=== PATIENT | male | born 1940 | race Caucasian/White ===

== ENCOUNTER 2017-11-27 18:42 | Emergency (ER) | payer OTHER, MEDICARE ==
[~2017-11-27] VITALS: Ht 171.4 cm; Wt 104.3 kg
--- NOTE | 2017-11-27 20:19 | CT SCAN REPORT ---
EXAMINATION: CT ABDOMEN AND PELVIS WITHOUT CONTRAST CLINICAL INFORMATION: Left-sided groin pain. COMPARISON: None available. TECHNIQUE: Multidetector volumetric imaging was performed from the superior aspect of the liver through the pubic symphysis. Sagittal and coronal reformatted images were obtained on the technologist's workstation. FINDINGS: The lung bases are clear. Limited evaluation of the unenhanced spleen, adrenal glands, gallbladder, and pancreas reveals no definite abnormality. Multiple liver cysts. The kidneys are symmetric in size without evidence of hydronephrosis or nephrolithiasis. Small right renal cyst. Moderate volume intracolonic stool. The large and small bowel are normal in caliber without evidence of mechanical obstruction. No focal inflammatory changes adjacent to the large or the small bowel. There is no free air and there is no intra-abdominal free fluid. No mesenteric or retroperitoneal adenopathy. Prostate gland is normal in size. The bladder is normal. There are no inguinal hernias. 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 There is an IVC filter in place. There are no acute osseous abnormalities. Severe degenerative disc disease throughout the entire lumbar spine. There is lumbarization of S1. Disc osteophyte and hypertrophic facet arthropathy result in varying degrees of moderate to severe foraminal stenosis throughout the lumbar spine. In the setting of lumbar radiculopathy these findings can be further assessed with a lumbar spine MRI. Hypertrophic degenerative changes involving the SI joints bilaterally, greater on the right side. Small fat-containing umbilical hernia. IMPRESSION: - No acute findings. No radiopaque calculi. No inguinal hernia. 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 - Severe degenerative disc disease throughout the entire lumbar spine. Disc osteophyte and hypertrophic facet arthropathy result in varying degrees of moderate to severe foraminal stenosis throughout the lumbar spine. In the setting of lumbar radiculopathy these findings can be further assessed with a lumbar spine MRI.
--- NOTE | 2017-11-27 20:39 | ED GENERAL ADULT ---
History of Present Illness General Chief Complaint: General Adult Stated Complaint: PT HAS PAIN ON THE LT SIDE BY GROIN Source: patient Exam Limitations: no limitations Allergies Coded Allergies: No Known Allergies (11/27/17) Triage Note: PT STATES THAT [place] AND THAT HE HAS A DVT IN HIS LLE, STATES THAT HE ALSO HAS 3 WEEKS OF L SIDE GROIN PAIN, PT UNABLE TO GIVE A GOOD MEDICAL HISTORY AND IS ALL OVER WITH HIS STORY. PT NEPHEW RAN HOME TO GET MED LIST. Triage Nurses Notes Reviewed? yes Onset: Gradual Duration: week(s): (3) Timing: no prior history Injury Environment: home Severity: moderate No Modifying Factors: none HPI: Patient is a 76-year-old male presenting to the emergency department with chief complaint of left groin pain has been going on intermittently for the past 2 weeks. Denies any known injury. Family noticed that he's been limping over the past 2 weeks. He was diagnosed with a blood clot in the left leg 3 days ago and started on ElEquist. Patient denies any chest pain palpitations or shortness of breath. No abdominal pain. Denies any scrotal pain. No urinary frequency urgency or dysuria. Denies any history of hernia. Patient does report that he is active and does do some lifting but nothing acute triggered the pain in the left groin area. (Jayna Garcia) Vital Signs & Intake/Output Vital Signs & Intake/Output Vital Signs Date Time Temp Pulse Resp B/P B/P Pulse O2 O2 Flow FiO2 Mean Ox Delivery Rate 11/27 2112 97.6 95 18 136/85 95 Room Air 11/27 1854 97.2 93 19 141/87 95 Room Air (Kevin Bonilla DO) Past History Travel History Traveled to [place] past 21 day No Medical History Any Pertinent Medical History? see below for history Cardiovascular: AFIB, hypertension Gastrointestinal: NONE Blood Disorders: DVT, PE Cancer(s): NONE Surgical History Surgical History: ivc filter Psychosocial History What is your primary language Bahraini Tobacco Use: Never used ETOH Use: denies use Illicit Drug Use: denies illicit drug use Family History Hx Contributory? No (Jayna Garcia) Review of Systems Review of Systems Constitutional: Reports: no symptoms. Comments Review of systems: See HPI, All other systems negative. Constitutional, no chills fever or weight loss HEENT: No visual changes no sore throat no congestion Cardiovascular: No chest pain ,palpitation , orthopnea or ankle swelling Skin, no jaundice no rashes Respiratory: No dyspnea cough sputum or hemoptysis GI: No nausea no vomiting : No dysuria No hematuria Muscle skeletal: no back pain, no neck pain, Neurologic: No numbness no confusion Psych: No stress anxiety or depression,. Heme/endocrine: No bruising no bleeding no polyuria or polydipsia Immunology: No splenectomy or history of AIDS (Jayna Garcia) Physical Exam Physical Exam General Appearance: well developed/nourished, no apparent distress, alert, comfortable Comments: Well-developed well-nourished person in no acute distress HEENT: Atraumatic, normocephalic Neck: Normal inspection Back: Nontender Cardiovascular: Regular rate and rhythms Respiratory: No respiratory distress.breath sounds clear to auscultation bilaterally Abdomen: Soft, mild distention throughoUT, reducible umbilical hernia present, nontender nondistended, no appreciable organomegaly. Normal bowel sounds. Extremity: Mild nonpitting edema noted in the left lower extremity, left calf tenderness to palpation on exam, normal and equal pulses. Tender to palpation over the left medial thigh, pain in this area with left hip abduction. Walks with slight limp favoring left leg. Neuro: Alert oriented x3, motor sensory normal Skin: No appreciable rash on exposed skin, skin is warm and dry. Psych: Mood and affect is normal, memory and judgment is normal. Core Measures ACS in differential dx? No CVA/TIA Diagnosis: No Sepsis Present: No Sepsis Focused Exam Completed? No (Jayna Garcia) Progress Differential Diagnoses I considered the following diagnoses in my evaluation of the patient: DVT, muscle strain, contusion, hip fracture, kidney stone, reactive lymph node, hernia Diagnostic Imaging: Viewed by Me: CT Scan, Ultrasound. Discussed w/RAD: CT Scan, Ultrasound. Radiology Impression: PATIENT: JAYSON GILLIAM PRESENT AGE: 76 PATIENT ACCOUNT NO: [id number] : 39 LOCATION: [facility] ORDERING PHYSICIAN: Tree AUGUST SERVICE DATE: 11/27/17 EXAM TYPE: US - US- UNILATERAL VENOUS DOPPLER EXAMINATION: US TRIPLEX LOWER EXTREMITY, LEFT CLINICAL INFORMATION: Edema and swelling COMPARISON: None TECHNIQUE: Color-flow triplex imaging with spectral analysis and compression Doppler were performed on the lower extremity. FINDINGS: Newly completely occlusive thrombus within the popliteal vein. Otherwise patent deep venous system. Calf veins not well visualized. There is no Quick's cyst. IMPRESSION: Popliteal vein DVT. This critical result was discussed with Dr. Lezama at 8:38 PM on 11/20/2016 and it was ascertained that the content and urgency of the report was understood at the time of direct communication. DICTATED BY: Maurilio Pelaez MD DATE/TIME DICTATED:2032 PAPER REWINDER OPERATOR:VICENTE DATE/TIME TRANSCRIBED:11/27/172032 CONFIDENTIAL, DO NOT COPY WITHOUT APPROPRIATE AUTHORIZATION. <Electronically signed in Other Vendor System> SIGNED BY: Maurilio Pelaez MD 11/27/172041, PATIENT: JAYSON GILLIAM PRESENT AGE: 76 PATIENT ACCOUNT NO: [id number] : 39 LOCATION: ER ORDERING PHYSICIAN: Tree AUGUST SERVICE DATE: 11/27/17 EXAM TYPE: CAT - CT ABD & PELVIS W/O IV CONTRAS EXAMINATION: CT ABDOMEN AND PELVIS WITHOUT CONTRAST CLINICAL INFORMATION: Left-sided groin pain. COMPARISON: None available. TECHNIQUE: Multidetector volumetric imaging was performed from the superior aspect of the liver through the pubic symphysis. Sagittal and coronal reformatted images were obtained on the technologist's workstation. FINDINGS: The lung bases are clear. Limited evaluation of the unenhanced spleen, adrenal glands, gallbladder, and pancreas reveals no definite abnormality. Multiple liver cysts. The kidneys are symmetric in size without evidence of hydronephrosis or nephrolithiasis. Small right renal cyst. Moderate volume intracolonic stool. The large and small bowel are normal in caliber without evidence of mechanical obstruction. No focal inflammatory changes adjacent to the large or the small bowel. There is no free air and there is no intra-abdominal free fluid. No mesenteric or retroperitoneal adenopathy. Prostate gland is normal in size. The bladder is normal. There are no inguinal hernias. 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 There is an IVC filter in place. There are no acute osseous abnormalities. Severe degenerative disc disease throughout the entire lumbar spine. There is lumbarization of S1. Disc osteophyte and hypertrophic facet arthropathy result in varying degrees of moderate to severe foraminal stenosis throughout the lumbar spine. In the setting of lumbar radiculopathy these findings can be further assessed with a lumbar spine MRI. Hypertrophic degenerative changes involving the SI joints bilaterally, greater on the right side. Small fat- containing umbilical hernia. IMPRESSION: - No acute findings. No radiopaque calculi. No inguinal hernia. 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 - Severe degenerative disc disease throughout the entire lumbar spine. Disc osteophyte and hypertrophic facet arthropathy result in varying degrees of moderate to severe foraminal stenosis throughout the lumbar spine. In the setting of lumbar radiculopathy these findings can be further assessed with a lumbar spine MRI. DICTATED BY: Kevin Swain MD DATE/TIME DICTATED:11/27/172003 PAPER REWINDER OPERATOR:VICENTE DATE/TIME TRANSCRIBED:11/27/172003 CONFIDENTIAL, DO NOT COPY WITHOUT APPROPRIATE AUTHORIZATION. <Electronically signed in Other Vendor System> SIGNED BY: Kevin Swain MD 11/27/172018 Initial ED EKG: none (Jayna Garcia) Plan of Care: Orders Procedure Date/time Status URINALYSIS 11/28 2043 Complete COMPREHENSIVE METABOLIC PANEL 11/28 2043 Complete CBC WITHOUT DIFFERENTIAL 11/28 2043 Complete Laboratory Tests 11/27/172111: Urine Color YEL, Urine Clarity CLEAR, Urine pH 6.0, Ur Specific [place] 1.020, Urine Protein NEG, Urine Ketones NEG, Urine Nitrite NEG, Urine Bilirubin NEG, Urine Urobilinogen 0.2, Ur Leukocyte Esterase SMALL H, Ur Microscopic SEDIMENT EXAMINED, Urine RBC 1-3, Urine WBC 1-3 H, Ur Epithelial Cells RARE, Urine Bacteria RARE H, Hyaline Casts RARE H, Urine Mucus RARE, Urine Hemoglobin SMALL H, Urine Glucose NEG 11/27/172108: Anion Gap 11, Estimated GFR 59 L, BUN/Creatinine Ratio 21.7, Glucose 116 H, Calcium 9.0, Total Bilirubin 0.7, AST 19, ALT 31, Alkaline Phosphatase 72, Total Protein 7.2, Albumin 3.9, Globulin 3.3, Albumin/Globulin Ratio 1.2, CBC w Diff NO MAN DIFF REQ, RBC 4.97, MCV 89.8, MCH 29.5, MCHC 32.9 L, RDW 15.4 H, MPV 6.7 L, Gran % 67.6, Lymphocytes % 21.0, Monocytes % 9.0, Eosinophils % 2.2, Basophils % 0.2, Absolute Granulocytes 5.2, Absolute Lymphocytes 1.6, Absolute Monocytes 0.7 H, Absolute Eosinophils 0.2, Absolute Basophils 0 Family informed of imaging results.. No shortness of breath or chest pain. Spoke with vascular regarding incidental finding of aneurysm on CT scan. Likely unrelated to patient's groin pain. There is no reproducible masses or lymph nodes on exam. Likely muscular in nature. Patient will follow up with the vascular surgeon in the office tomorrow. Otherwise instructed to use Tylenol [id number] and warm compresses to help with symptoms. D/W DR TAPIA AND HE AGREES WITH PLAN. (Jayna Garcia) (Kevin Bonilla DO) Departure Departure Time of Disposition: 2214 Disposition: HOME OR SELF CARE Condition: Stable Clinical Impression Primary Impression: Groin pain Qualifiers: Laterality: left Qualified Code: R10.32 - Left lower quadrant pain Referrals: Benigno Mosquera MD Patient Has No Primary Care Dr (PCP/Family) Additional Instructions: Follow-up with Vascular surgery, call tomorrow to schedule appointment. Dr. Mosquera said he can see you in his [place] office tomorrow, call the office at [phone] to make an appointment. Apply warm compresses to affected area. Take Tylenol [id number] for any aches or pains. Departure Forms: Customer Survey General Discharge Information (Jayna Garcia) PA/METAL BONDING ASSEMBLER Co-Sign Statement Statement: ED Attending supervision documentation- x I saw and evaluated the patient. I have also reviewed all the pertinent lab results and diagnostic results. I agree with the findings and the plan of care as documented in the PA's/METAL BONDING ASSEMBLER's documentation. [] I have reviewed the ED Record and agree with the PA's/METAL BONDING ASSEMBLER's documentation. [] Additions or exceptions (if any) to the PAs/METAL BONDING ASSEMBLER's note and plan are summarized below: [] I've seen and personally examined the patient. The left groin is essentially unremarkable. CT results noted. The patient will follow up with vascular surgery. (Chad PFEIFFER,Kevin Hughes) Critical Care Note Critical Care Note Critical Care Time: non-applicable (Stewart AUGUST,Jayna)
--- NOTE | 2017-11-27 20:42 | ULTRASOUND REPORT ---
EXAMINATION: US TRIPLEX LOWER EXTREMITY, LEFT CLINICAL INFORMATION: Edema and swelling COMPARISON: None TECHNIQUE: Color-flow triplex imaging with spectral analysis and compression Doppler were performed on the lower extremity. FINDINGS: Newly completely occlusive thrombus within the popliteal vein. Otherwise patent deep venous system. Calf veins not well visualized. There is no Quick's cyst. IMPRESSION: Popliteal vein DVT. This critical result was discussed with Dr. Lezama at 8:38 PM on 11/20/2016 and it was ascertained that the content and urgency of the report was understood at the time of direct communication.
[2017-11-27 21:12] VITALS: BP 136/85
[2017-11-27 21:17] LABS: ABSOLUTE BASOPHIL COUNT 0 /CUMM (0.0-0.2); ABSOLUTE EOSINOPHIL COUNT 0.2 /CUMM (0.0-0.7); ABSOLUTE GRANULOCYTE CT 5.2 /CUMM (1.4-6.5); ABSOLUTE LYMPH COUNT 1.6 /CUMM (1.2-3.4); ABSOLUTE MONOCYTE COUNT 0.7 /CUMM (0.10-0.60); BASOPHIL % 0.2 % (0.0-2.0); EOSINOPHIL % 2.2 % (0-5); GRANULOCYTE % 67.6 % (42.2-75.2); HEMATOCRIT 44.7 % (42-52); MEAN CORPUSCULAR HGB 29.5 PG (27.0-31.0); MEAN CORPUSCULAR HGB CONC 32.9 G/DL (33.0-37.0); MEAN CORPUSCULAR VOLUME 89.8 FL (80.0-94.0); MEAN PLATELET VOLUME 6.7 FL (7.4-10.4); PLATELET COUNT 232 /CUMM (130-400); RBC DISTRIBUTION WIDTH 15.4 % (11.5-14.5); RED BLOOD CELL CT 4.97 /CUMM (4.70-6.10); WHITE BLOOD CELL COUNT 7.8 /CUMM (4.8-10.8)
== END 2017-11-27 22:51 ==
LOC: ERH 18:42
PROVIDERS: Physician Assistant
DX: R10.32 Left lower quadrant pain (principal)
CPT/HCPCS: 74176; 81001

== ENCOUNTER 2018-01-11 18:02 | Inpatient (IN) | payer OTHER, MEDICARE ==
[~2018-01-11] VITALS: Ht 175.3 cm; Wt 101.7 kg
--- NOTE | 2018-01-11 18:37 | ED CARDIAC/CP/PALPITATIONS ---
History of Present Illness General Chief Complaint: General Adult Stated Complaint: PT STATES "MY LEGS ARE WOBBILING" Source: patient, family Exam Limitations: dementia Vital Signs & Intake/Output Vital Signs & Intake/Output Vital Signs Date Time Temp Pulse Resp B/P B/P Pulse O2 O2 Flow FiO2 Mean Ox Delivery Rate 01/13 0915 91 110/68 01/13 0800 93 Nasal 2.0L Cannula 01/13 0744 98.0 91 18 110/68 96 01/13 0000 Nasal 2.0L Cannula 01/12 2244 97.8 114 20 110/78 93 Nasal 2.0L Cannula 01/12 2142 114 110/78 01/12 1600 97 Nasal 2.0L Cannula ED Intake and Output 01/13 0000 01/12 1200 Intake Total 820 Output Total 625 800 Balance 195 -800 Intake, IV 250 Intake, Oral 570 Output, Urine 625 800 Patient 105.233 kg Weight Weight Bed scale Measurement Method Allergies Coded Allergies: No Known Allergies (11/27/17) Reconcile Medications Apixaban (Eliquis) 5 MG TABLET 1 TAB PO BID a.fib (Reported) Benztropine Mesylate 1 MG TABLET 1 TAB PO BID TARDIVE DYSKINESIA (Reported) Levothyroxine Sodium (Synthroid) 200 MCG TABLET 1 TAB PO DAILY HYPOTHRYOIDISM (Reported) Nifedipine (Nifedipine ER) 30 MG TABLET.ER 1 TAB PO DAILY HTN (Reported) Quetiapine Fumarate 300 MG 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 REPORTED PALPITATIONS AN HOUR AGO BUT DENIES CP. APICAL SOUNDS IRREGULAR AND RADIAL PULSES IRREGULAR AND THREADY. DENIES HEADACHE OR DIZZINESS. NO CAROTID BRUIT. DENIES COUGH, +SOB AND HINKLE. +CRACKLES BILATERALLY. ABDOMEN SOFT DISTENDED WITH DIMINISHED BOWEL SOUNDS. EKG SHOWS AFIB W RVR AND SIGNIFICANT ECTOPY WITH PAC'S. DENIES PAIN. DAILY ELIQUIS, NO ASA. HX DVT AND PE'S. Triage Nurses Notes Reviewed? yes HPI: 77M PMH atrial fibrillation on Eliquis, HTN presenting with lightheadedness and a sensation of wobbling legs that presented suddenly. Never had similar symptoms before. Had an episode of palpitations about an hour prior that has since resolved. Denies vertigo, headache, sore throat, stiff neck, chest pain, SOB, abdominal pain, diarrhea, dysuria. Compliant with all meds. No sck contacts or travel. Gets his care at the NH. History limited by mild dementia. Past History Travel History Traveled to [place] past 21 day No Medical History Any Pertinent Medical History? see below for history Neurological: NONE EENT: NONE Cardiovascular: AFIB, hypertension Respiratory: NONE Gastrointestinal: NONE Hepatic: NONE Renal: NONE Musculoskeletal: NONE Psychiatric: NONE Endocrine: NONE Blood Disorders: DVT, PE Cancer(s): NONE Surgical History Surgical History: ivc filter Psychosocial History What is your primary language Welsh Tobacco Use: Refused to answer Family History Hx Contributory? No Review of Systems Review of Systems Constitutional: Reports: no symptoms. EENTM: Reports: no symptoms. Respiratory: Reports: no symptoms. Cardiovascular: Reports: no symptoms. GI: Reports: no symptoms. Genitourinary: Reports: no symptoms. Musculoskeletal: Reports: no symptoms. Skin: Reports: no symptoms. Neurological/Psychological: Reports: no symptoms. Hematologic/Endocrine: Reports: no symptoms. Immunologic/Allergic: Reports: no symptoms. All Other Systems: Reviewed and Negative Physical Exam Physical Exam General Appearance: well developed/nourished, no apparent distress Head: atraumatic, normal appearance Eyes: Bilateral: normal appearance. Ears, Nose, Throat: normal ENT inspection, hearing grossly normal Neck: normal inspection, supple, full range of motion Respiratory: bibasilar crackles Cardiovascular: irregularly irregular, 2/6 systolic murmur at LUSB Peripheral Pulses: 2+ radial (R), 2+ radial (L) Gastrointestinal: soft, non-tender Back: normal inspection, normal range of motion Extremities: normal inspection, normal capillary refill, normal range of motion, 3+ pitting edema to knees b/l Neurologic/Psych: awake, alert, oriented x 3, normal mood/affect Skin: follilculitis of chest Core Measures ACS in differential dx? Yes CVA/TIA Diagnosis No Sepsis Present: No Sepsis Focused Exam Completed? No Progress Differential Diagnosis: AMI, aortic dissection, atrial fibrillation, cholecystitis, CHF/pulm edema, costochondritis, hyperkalemia, hypovolemia, hyperthyroid, hyperventilation, intracranial hemorrhage, musculoskeletal pain, myocarditis, pancreatitis, pericarditis, pneumonia, pneumothorax, PSVT, pulmonary embolism, PUD/GERD, PVCs/PACs, respiratory failure, rib fracture, sepsis, unstable angina, V-fib/V-Tach, WPW syndrome Plan of Care: Orders Procedure Date/time Status BASIC ELECTROLYTES PLUS BUN&CR 01/14 06 Active MAGNESIUM 01/13 600 Complete CBC WITHOUT DIFFERENTIAL 01/13 600 Complete BASIC ELECTROLYTES PLUS BUN&CR 01/13 600 Complete Current Medications Sig/Connie Start time Last Medication Dose Stop Time Status Admin Carvedilol 6.25 MG BID 01/13 2100 AC (Coreg) Ondansetron HCl 4 MG Q6P PRN 01/13 1030 AC (Zofran) Nifedipine 30 MG DAILY 01/13 0900 CAN (Procardia XL) Atorvastatin Calcium 40 MG QPM 01/12 2100 AC 01/12 (Lipitor) 214 Furosemide 20 MG 7:30 AM, & 4:30 PM 01/12 1745 AC 01/13 (Lasix) 0914 Polyethylene Glycol 17 GM DAILY 01/12 1430 AC 01/13 (Miralax) 0914 Senna/Docusate Sodium 1 TAB BID PRN 01/12 1430 AC 01/12 (Senokot S) 2142 Benztropine Mesylate 1 MG BID 01/12 0900 AC 01/13 (Cogentin 1 MG 09 Tablet) Quetiapine Fumarate 300 MG DAILY 01/12 0900 AC 01/13 (Seroquel) 0915 Levothyroxine Sodium 0.2 MG DAILY AC 01/12 0700 AC 01/12 (Synthroid) 0602 Acetaminophen 650 MG Q4P PRN 01/12 0300 AC 01/12 (Tylenol) 2141 Apixaban 5 MG BID 01/11 2330 AC 01/13 (Eliquis) 0915 Quetiapine Fumarate 300 MG QPM 01/11 2330 AC 01/12 (Seroquel) 214 Laboratory Tests 01/13/18 0652: Anion Gap 7, Estimated GFR > 60, BUN/Creatinine Ratio 22.0, Magnesium 2.2, CBC w Diff NO MAN DIFF REQ, RBC 4.46 L, MCV 89.0, MCH 29.4, MCHC 33.0, RDW 15.7 H, MPV 7.4, Gran % 73.3, Lymphocytes % 17.3 L, Monocytes % 7.7, Eosinophils % 1.4, Basophils % 0.3, Absolute Granulocytes 5.7, Absolute Lymphocytes 1.4, Absolute Monocytes 0.6, Absolute Eosinophils 0.1, Absolute Basophils 0 01/12/18 1657: Magnesium Cancelled Initial ED EKG: AFIB, no ST T wave changes Departure Departure Disposition: STILL A PATIENT Condition: Stable Clinical Impression Primary Impression: Rapid atrial fibrillation Secondary Impressions: Acute CHF Qualifiers: Heart failure type: unspecified Qualified Code: I50.9 - Heart failure, unspecified Referrals: Patient Has No Primary Care Dr (PCP/Family) Departure Forms: Customer Survey General Discharge Information Admission Note Spoke With: Pino Schmidt MD Documentation of Exam: Documentation of any treatments & extenuating circumstances including Concerns Regarding Discharge (functional status, medication knowledge or non-compliance, living conditions, etc.) that warrant an admission rather than observation: rapid atrial fibrillation with 3+ bilateral pitting edema, lightheadedness, and unsteady gait, to be admitted to telemetry floor for IV diuresis, echocardiogram , cardiology evaluation, rate control. Critical Care Note Critical Care Note Critical Care Time: 30-74 min
[2018-01-11 18:58] LABS: ABSOLUTE BASOPHIL COUNT 0 /CUMM (0.0-0.2); ABSOLUTE EOSINOPHIL COUNT 0.1 /CUMM (0.0-0.7); ABSOLUTE GRANULOCYTE CT 5.6 /CUMM (1.4-6.5); ABSOLUTE LYMPH COUNT 1.7 /CUMM (1.2-3.4); BASOPHIL % 0.2 % (0.0-2.0); EOSINOPHIL % 1.6 % (0-5); HEMATOCRIT 44.5 % (42-52); MEAN CORPUSCULAR HGB 29.4 PG (27.0-31.0); MEAN CORPUSCULAR HGB CONC 33.2 G/DL (33.0-37.0); MEAN CORPUSCULAR VOLUME 88.6 FL (80.0-94.0); MEAN PLATELET VOLUME 6.9 FL (7.4-10.4); PLATELET COUNT 242 /CUMM (130-400); RBC DISTRIBUTION WIDTH 15.5 % (11.5-14.5); RED BLOOD CELL CT 5.03 /CUMM (4.70-6.10); WHITE BLOOD CELL COUNT 8.4 /CUMM (4.8-10.8)
[2018-01-11 19:00] LABS: PT 17.5 SEC (9.4-12.5)
--- NOTE | 2018-01-11 19:01 | RADIOLOGY REPORT ---
EXAMINATION: CHEST 1 VIEW CLINICAL INFORMATION: Dyspnea. Edema. Crackles. COMPARISON: None. TECHNIQUE: An AP view of the chest is provided. FINDINGS: The cardiac silhouette is not enlarged. The mediastinal and hilar contours are unremarkable. There are neither pleural effusions nor pneumothoraces. There are no consolidations. There is left greater than right glenohumeral degenerative change present. The osseous structures are otherwise unremarkable. IMPRESSION: No evidence for acute disease.
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
[2018-01-11 22:31] VITALS: BP 118/72
[2018-01-11] MEDS ORDERED: NIFEDIPINE ER30 M1 PO (23:09)
[2018-01-11] MEDS ORDERED: ELIQUIS5 M1 PO (23:09)
[2018-01-11] MEDS ORDERED: QUETIAPINE FUM300 M1 PO ×2 (23:12→23:13)
[2018-01-11] MEDS ORDERED: SYNTHROID200 MCG PO (23:14)
[2018-01-11] MEDS ORDERED: BENZTROPINE MESY1 M1 PO (23:15)
[2018-01-11] MEDS ORDERED: SIMVASTATIN40 M1 PO (23:16)
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
[2018-01-12 02:01] VITALS: BP 104/76
--- NOTE | 2018-01-12 04:44 | Admission Certification ---
Admission Certification Certification Statement - As attending physician, I certify that at the time of - admission, based on clinical presentation, severity of - symptoms, need for further diagnostic testing and - therapeutic interventions, and risk of adverse outcomes - without in-hospital treatment, in my clinical assessment, - this patient requires an acute hospital stay for a minimum - of two nights or longer. I have also considered psychsocial - factors such as support system, advanced age, financial - issues, cognitive issues, and failed out-patient treatments, - past re-admission history, safety of patient, and lack of - compliance as applicable. Specific rationale supporting this admission is: Suspected heart failure
[2018-01-12 06:57] VITALS: BP 100/74
[2018-01-12 11:57] LABS: ABSOLUTE BASOPHIL COUNT 0 /CUMM (0.0-0.2); ABSOLUTE EOSINOPHIL COUNT 0 /CUMM (0.0-0.7); ABSOLUTE GRANULOCYTE CT 8.2 /CUMM (1.4-6.5); ABSOLUTE MONOCYTE COUNT 0.7 /CUMM (0.10-0.60); BASOPHIL % 0.2 % (0.0-2.0); EOSINOPHIL % 0.4 % (0-5); GRANULOCYTE % 82.9 % (42.2-75.2); HEMATOCRIT 40.7 % (42-52); MEAN CORPUSCULAR HGB 29.2 PG (27.0-31.0); MEAN CORPUSCULAR HGB CONC 32.8 G/DL (33.0-37.0); MEAN PLATELET VOLUME 7.3 FL (7.4-10.4); PLATELET COUNT 208 /CUMM (130-400); RBC DISTRIBUTION WIDTH 15.6 % (11.5-14.5); RED BLOOD CELL CT 4.57 /CUMM (4.70-6.10); WHITE BLOOD CELL COUNT 9.9 /CUMM (4.8-10.8)
--- NOTE | 2018-01-12 12:09 | Cons- Cardiology ---
General Information and HPI Consulting Request Date of Consult: 01/12/18 Requested By: Pino Schmidt MD Reason for Consult: Atrial fibrillation, dyspnea Source of Information: patient, old records Exam Limitations: poor historian History of Present Illness: The patient is a 77-year-old gentleman with a past medical history of atrial fibrillation, hypertension, prior DVT, schizophrenia, hypertension and hypothyroidism. He presents to our hospital with symptoms of increasing dyspnea over a period of several weeks to a month as well as complaints of increasing leg weakness while ambulating. The patient has limited historian capabilities. The patient was noted to have increasing lower extremity weakness while ambulating in a store with his family, and they as well reported noting increasing dyspnea over a period of several weeks to 1 month. There have been no other complaints of chest pains nor palpitations. There has been no lightheadedness nor syncope reported. On arrival to our hospital, he was noted to have a preserved blood pressure; however, was in atrial fibrillation with a rapid ventricular response. The patient subsequently had 2 negative troponin isoenzymes; however, a presenting BNP was elevated at 1230. Records including a potential recent echocardiogram are currently unavailable ( performed at the [facility]). Allergies/Medications Allergies: Coded Allergies: No Known Allergies (11/27/17) Home Med List: Apixaban (Eliquis) 5 MG TABLET 1 TAB PO BID a.fib (Reported) Benztropine Mesylate 1 MG TABLET 1 TAB PO BID TARDIVE DYSKINESIA (Reported) Levothyroxine Sodium (Synthroid) 200 MCG TABLET 1 TAB PO DAILY HYPOTHRYOIDISM (Reported) Nifedipine (Nifedipine ER) 30 MG TABLET.ER 1 TAB PO DAILY HTN (Reported) Quetiapine Fumarate 300 MG TABLET 1 TAB PO QPM SCHIZOPHRENIA (Reported) Quetiapine Fumarate 300 MG TABLET 2 TAB PO QPM SCHIZOPHRENIA (Reported) Simvastatin (Simvastatin*) 40 MG TABLET 1 TAB PO QPM HLD (Reported) Current Medications: Current Medications Sig/Connie Start time Last Medication Dose Route Stop Time Status Admin Acetaminophen 650 MG Q4P PRN 01/12 0300 AC PO Al Hydroxide/Mg 30 ML ONCE ONE 01/12 0600 DC 01/12 Hydroxide PO 01/12 0601 0602 Apixaban 5 MG BID 01/11 2330 AC 01/12 PO 0903 Apixaban 5 MG BID 01/11 2315 DC PO Aspirin 0 .STK-MED ONE 01/11 1903 DC PO Aspirin 325 MG ONCE ONE 01/11 1830 DC 01/11 PO 01/11 1831 1858 Atorvastatin Calcium 40 MG QPM 01/12 2100 AC PO Benztropine Mesylate 1 MG BID 01/12 0900 AC 01/12 PO 0904 Calcium Carbonate 500 MG ONCE ONE 01/12 0045 DC 01/12 PO 01/12 0046 0135 Furosemide 40 MG .STK-MED ONE 01/12 0133 DC IV 01/12 0134 Furosemide 20 MG ONCE ONE 01/12 0100 DC 01/12 IV 01/12 0101 0135 Levothyroxine Sodium 0.2 MG DAILY AC 01/12 0700 AC 01/12 PO 0602 Magnesium Oxide 400 MG ONE ONE 01/12 0930 DC 01/12 PO 01/12 0931 1057 Nifedipine 30 MG DAILY 01/12 0900 AC 01/12 PO 0904 Quetiapine Fumarate 300 MG DAILY 01/12 0900 AC 01/12 PO 0904 Quetiapine Fumarate 300 MG QPM 01/11 2330 AC 01/11 PO 2353 Sodium Chloride 250 ML BOLUS ONE 01/12 1115 AC 01/12 IV 01/12 1214 1109 Review of Systems Review of Systems: The review of systems is negative for chest pains, palpitations nor lightheadedness. Increasing lower edema as well as dyspnea have been noted by the family over a period of several weeks to 1 month The remainder of the 14 point review of systems is noncontributory with the exception of above. Past History Travel History Traveled to [place] past 21 day No Medical History Blood Transfusion Hx: No Neurological: NONE EENT: NONE Cardiovascular: AFIB, hypertension Respiratory: NONE Gastrointestinal: NONE Hepatic: NONE Renal: NONE Musculoskeletal: NONE Psychiatric: NONE Endocrine: NONE Blood Disorders: DVT, PE Cancer(s): NONE Surgical History Surgical History: ivc filter Psychosocial History Where Do You Live? Home Services at Home: None Smoking Status: Never Smoked Exam & Diagnostic Data Vital Signs and I&O Vital Signs Date Time Temp Pulse Resp B/P B/P Pulse O2 O2 Flow FiO2 Mean Ox Delivery Rate 01/12 0904 120 100/74 / 0800 Nasal 2.0L Cannula 01/12 0657 97.9 120 20 100/74 95 Nasal Cannula 01/12 0201 20 104/76 94 Nasal 2.0L Cannula 05/11 2231 98.5 100 20 118/72 95 Nasal 2.0L Cannula 01/11 2230 95 Nasal 2.0L Cannula 01/11 2155 98.6 109 18 125/76 92 Nasal 2.0L Cannula 01/11 1845 91 Room Air 01/11 1828 126 18 117/81 94 Room Air Intake & Output 01/12 1600 01/12 0800 01/12 0000 01/11 1600 01/11 0800 01/11 0000 Intake Total 0 Output Total 800 Balance -800 0 Intake, Oral 0 Output, Urine 800 Patient 230 lb Weight Weight Bed scale Measurement Method Physical Exam: General: Nontoxic, no apparent distress. HEENT: Sclera and conjunctiva within normal limits, without xanthelasmas. Neck: Carotids 2+ without bruits. Respiratory: Scattered rhonchi and rales, air movement is decreased at bases without accessory respiratory muscle use. Heart: Irregularly irregular rate and rhythm, without murmurs, without JVD. Abdomen: Soft, nontender, no masses, normoactive bowel sounds. Extremities: Without clubbing, cyanosis, 1 mm of pitting edema in both lower extremities to the mid tibial region. Neuro: Nonfocal exam, strength, 5 out of 5 Skin: Within normal limits without lesions. Psych: Mood and affect: Normal Labs/Ramon Results: Laboratory Tests 01/12 01/12 01/12 1115 0612 0026 Chemistry Sodium (137 - 145 mmol/L) 137 Potassium (3.5 - 5.1 mmol/L) 4.0 Chloride (98 - 107 mmol/L) 103 Carbon Dioxide (22 - 30 mmol/L) 22 Anion Gap (5 - 16) 12 BUN (9 - 20 mg/dL) 22 H Creatinine (0.7 - 1.2 mg/dL) 0.8 Estimated GFR (>60 ml/min) > 60 BUN/Creatinine Ratio (7 - 25 %) 27.5 H Magnesium (1.6 - 2.3 mg/dL) 1.8 Troponin I (<0.11 ng/ml) < 0.01 TSH (0.270 - 4.200 uIU/mL) 10.900 H Thyroxine (T4) (4.5 - 10.9 ug/dL) 7.0 Hematology CBC w Diff Pending WBC Pending RBC Pending Hgb Pending Hct Pending MCV Pending MCH Pending MCHC Pending RDW Pending Plt Count Pending MPV Pending 01/11 1835 Chemistry Sodium (137 - 145 mmol/L) 141 Potassium (3.5 - 5.1 mmol/L) 4.4 Chloride (98 - 107 mmol/L) 103 Carbon Dioxide (22 - 30 mmol/L) 26 Anion Gap (5 - 16) 12 BUN (9 - 20 mg/dL) 23 H Creatinine (0.7 - 1.2 mg/dL) 1.0 Estimated GFR (>60 ml/min) > 60 BUN/Creatinine Ratio (7 - 25 %) 23.0 Glucose (65 - 99 mg/dL) 96 Calcium (8.4 - 10.2 mg/dL) 9.4 Total Bilirubin (0.2 - 1.3 mg/dL) 0.8 AST (17 - 59 U/L) 29 ALT (21 - 72 U/L) 47 Alkaline Phosphatase (< 127 U/L) 72 Troponin I (<0.11 ng/ml) < 0.01 [id number]-Imkroerpibh Pept (<125 pg/mL) 1230 H Total Protein (6.3 - 8.2 g/dL) 7.6 Albumin (3.5 - 5.0 g/dL) 4.4 Globulin (1.9 - 4.2 gm/dL) 3.2 Albumin/Globulin Ratio (1.1 - 2.2 %) 1.4 Coagulation PT (9.4 - 12.5 SEC) 17.5 H INR (0.90 - 1.17) 1.60 H D-Dimer High Sensitivty (0 - 243 ng/ml) 232 Hematology CBC w Diff NO MAN DIFF REQ WBC (4.8 - 10.8 /CUMM) 8.4 RBC (4.70 - 6.10 /CUMM) 5.03 Hgb (14.0 - 18.0 G/DL) 14.8 Hct (42 - 52 %) 44.5 MCV (80.0 - 94.0 FL) 88.6 MCH (27.0 - 31.0 PG) 29.4 MCHC (33.0 - 37.0 G/DL) 33.2 RDW (11.5 - 14.5 %) 15.5 H Plt Count (130 - 400 /CUMM) 242 MPV (7.4 - 10.4 FL) 6.9 L Gran % (42.2 - 75.2 %) 66.0 Lymphocytes % (20.5 - 51.1 %) 20.6 Monocytes % (1.7 - 9.3 %) 11.6 H Eosinophils % (0 - 5 %) 1.6 Basophils % (0.0 - 2.0 %) 0.2 Absolute Granulocytes (1.4 - 6.5 /CUMM) 5.6 Absolute Lymphocytes (1.2 - 3.4 /CUMM) 1.7 Absolute Monocytes (0.10 - 0.60 /CUMM) 1.0 H Absolute Eosinophils (0.0 - 0.7 /CUMM) 0.1 Absolute Basophils (0.0 - 0.2 /CUMM) 0 Assessment/Plan Assessment/Plan The patient is a 77-year-old gentleman with a past medical history of atrial fibrillation, hypertension, prior DVT, schizophrenia, hypertension and hypothyroidism. He presents to our hospital with symptoms of increasing dyspnea over a period of several weeks to a month as well as complaints of increasing leg weakness while ambulating. He was found to have atrial fibrillation with rapid ventricular response. The patient subsequently had 2 negative troponin isoenzymes; however, an elevated BNP at 1230. The patient has limited historian capabilities. Atrial fibrillation: The patient has known atrial fibrillation and is currently anticoagulated ( albeit for a DVT; however, with therapeutic doses). His heart rate control is suboptimal; however, blood pressure may limit aggressive heart rate control agents. At this time, I would discontinue his regimen of nifedipine, and favor the addition of an agent such as carvedilol or metoprolol (metoprolol succinate) and treatment for his underlying atrial fibrillation as well as likely congestive heart failure. If rate control is unable to be maintained given hypotension, the addition of digoxin may be considered Dyspnea: The patient has evidence for likely acute on chronic congestive heart failure. His underlying LV function is unknown, and we will attempt to obtain his outpatient echocardiogram versus a repeat during his admission given his acute decompensation. Rate control will be attempted for his underlying atrial fibrillation with an agent such as carvedilol, and if blood pressure allows, further additional treatment agents with GANGA inhibitors or angiotensin receptor blockers may be attempted. We will continue with diuresis, targeting a net output of approximately 1 L per day Further recommendations made based on review of an echocardiogram. Thank you for allowing us to participate in the care of your patient. Please do not hesitate to contact us further with any questions. Sincerely, Emmanuel Zeng MD [facility] Consult Acknowledgment - Thank you for your consult request.
[2018-01-12 12:34] VITALS: BP 106/72
[2018-01-12 14:32] VITALS: BP 104/70
[2018-01-12 22:44] VITALS: BP 110/78
[2018-01-13 07:44] VITALS: BP 110/68
[2018-01-13 08:43] LABS: ABSOLUTE BASOPHIL COUNT 0 /CUMM (0.0-0.2); ABSOLUTE EOSINOPHIL COUNT 0.1 /CUMM (0.0-0.7); ABSOLUTE GRANULOCYTE CT 5.7 /CUMM (1.4-6.5); ABSOLUTE LYMPH COUNT 1.4 /CUMM (1.2-3.4); ABSOLUTE MONOCYTE COUNT 0.6 /CUMM (0.10-0.60); BASOPHIL % 0.3 % (0.0-2.0); EOSINOPHIL % 1.4 % (0-5); GRANULOCYTE % 73.3 % (42.2-75.2); HEMATOCRIT 39.7 % (42-52); MEAN CORPUSCULAR HGB 29.4 PG (27.0-31.0); MEAN PLATELET VOLUME 7.4 FL (7.4-10.4); PLATELET COUNT 208 /CUMM (130-400); RBC DISTRIBUTION WIDTH 15.7 % (11.5-14.5); RED BLOOD CELL CT 4.46 /CUMM (4.70-6.10); WHITE BLOOD CELL COUNT 7.8 /CUMM (4.8-10.8)
--- NOTE | 2018-01-13 08:43 | PN- Housestaff ---
Patriico Arredondo MD 01/13/18 0843: Subjective Follow-up For: Yonatan hall CHF Schizophrenia Hypothyroidism Tele-Events Since Last Visit: Atrial fibrillation/flutter, heart rate 80s-130s Subjective: Patient seen and examined. He is seen lying on his right shoulder in bed resting comfortably. He appears to be in no acute distress. He reports being very tired this morning and admits that last evening he became suddenly nauseated causing him to vomit nonbloody bilious material. He reports that this is never happened before. Other than some mild abdominal pain this morning he has no new complaints. Review of Systems Constitutional: Reports: see HPI. Objective Last 24 Hrs of Vital Signs/I&O Vital Signs Date Time Temp Pulse Resp B/P B/P Pulse O2 O2 Flow FiO2 Mean Ox Delivery Rate 01/13 0915 91 110/68 01/13 0800 93 Nasal 2.0L Cannula 01/13 0744 98.0 91 18 110/68 96 01/13 0000 Nasal 2.0L Cannula 01/12 2244 97.8 114 20 110/78 93 Nasal 2.0L Cannula 01/12 2142 114 110/78 01/12 1600 97 Nasal 2.0L Cannula 01/12 1432 97.6 90 18 104/70 94 Nasal Cannula 01/12 1234 106/72 Intake & Output 01/13 1600 01/13 0800 01/13 0000 Intake Total 120 120 Output Total 500 Balance -380 120 Intake, Oral 120 120 Output, Urine 500 Patient 105.233 kg Weight Weight Bed scale Measurement Method Physical Exam General Appearance: Alert, Oriented X3, Cooperative, No Acute Distress Other Physical Findings: General: Well-developed, well-nourished elderly man in no acute distress HEENT: NCAT, PERRLA, EOMI, anicteric sclera Neck: Supple, no JVD, trachea midline Cardio: Normal S1/S2 without murmurs/gallops/rubs; irregularly irregular Pulmonary: Diminished bibasilar airflow with scant crackles Abdomen: Soft, nontender, nondistended, bowel sounds intact Neuro: Awake and alert, cranial nerves II through XII grossly intact Extremities: Normal pulses, no cyanosis or edema Current Medications: Current Medications Sig/Connie Start time Last Medication Dose Route Stop Time Status Admin Acetaminophen 650 MG Q4P PRN 01/12 0300 AC 01/12 PO 2141 Apixaban 5 MG BID 01/11 2330 AC 01/13 PO 0915 Atorvastatin Calcium 40 MG QPM 01/12 2100 AC 01/12 PO 214 Benztropine Mesylate 1 MG BID 01/12 0900 AC 01/13 PO 0914 Bisacodyl 10 MG ONCE ONE 01/12 2345 DC IL 01/12 2346 Carvedilol 3.125 MG BID 01/12 2100 AC 01/13 PO 0915 Furosemide 20 MG 7:30 AM, & 4:30 PM 01/12 1745 AC 01/13 IV 0914 Levothyroxine Sodium 0.2 MG DAILY AC 01/12 0700 AC 01/12 PO 0602 Nifedipine 30 MG DAILY 01/13 09 CAN PO Nifedipine 30 MG DAILY 01/12 09 DC 01/12 PO 0904 Ondansetron HCl 4 MG ONCE ONE 01/12 2200 DC 01/12 IV 01/12 2201 2211 Polyethylene Glycol 17 GM DAILY 01/12 1430 AC 01/13 PO 0914 Quetiapine Fumarate 300 MG DAILY 01/12 0900 AC 01/13 PO 0915 Quetiapine Fumarate 300 MG QPM 01/11 2330 AC 01/12 PO 2141 Senna/Docusate Sodium 1 TAB BID PRN 01/12 1430 AC 01/12 PO 2142 Sodium Chloride 250 ML BOLUS ONE 01/12 1115 DC 01/12 IV 01/12 1214 1109 Last 24 Hrs of Lab/Ramon Results Last 24 Hrs of Labs/Mics: Laboratory Tests 01/13/18 0652: Anion Gap 7, Estimated GFR > 60, BUN/Creatinine Ratio 22.0, Magnesium 2.2, CBC w Diff NO MAN DIFF REQ, RBC 4.46 L, MCV 89.0, MCH 29.4, MCHC 33.0, RDW 15.7 H, MPV 7.4, Gran % 73.3, Lymphocytes % 17.3 L, Monocytes % 7.7, Eosinophils % 1.4, Basophils % 0.3, Absolute Granulocytes 5.7, Absolute Lymphocytes 1.4, Absolute Monocytes 0.6, Absolute Eosinophils 0.1, Absolute Basophils 0 01/12/18 1657: Magnesium Cancelled 01/12/18 1115: CBC w Diff NO MAN DIFF REQ, RBC 4.57 L, MCV 89.0, MCH 29.2, MCHC 32.8 L, RDW 15.6 H, MPV 7.3 L, Gran % 82.9 H, Lymphocytes % 9.7 L, Monocytes % 6.8, Eosinophils % 0.4, Basophils % 0.2, Absolute Granulocytes 8.2 H, Absolute Lymphocytes 1.0 L, Absolute Monocytes 0.7 H, Absolute Eosinophils 0, Absolute Basophils 0 Assessment/Plan Assessment: 77-year-old man with multiple medical problems significant for A. fib/DVT on Eliquis seen for evaluation of lower extremity swelling and elevated heart rate. Patient appears to be clinically improving on intravenous Lasix and oral Coreg for his hypervolemia and tachycardia. He remains net negative fluid balance. Last evening he had an episode of nausea/vomiting that was resolved with Zofran. He has some abdominal discomfort this morning possibly due to retching. Echocardiogram is pending. Problem list -Tachycardia, resolved -Bilateral lower extremity swelling, resolved -Atrial fibrillation, on Eliquis -DVT status post IVC filter, on Eliquis -Schizophrenia, on Seroquel/Cogentin -Hypothyroidism -Obesity Plan -Continue telemetry admission -Telemetry monitoring -Strict ins and outs, daily weight -Supplemental oxygen, goal >92%, taper as tolerated -hold diltiazem, continue carvedilol -Coreg 3.125 mg p.o. twice daily -Lasix 20 mg IV twice daily -Zofran as needed for nausea -Continue home meds: Eliquis, atorvastatin, Cogentin, levothyroxine, Seroquel -Cardiology following for tachycardia/hypervolemia -Follow-up echocardiogram -Pain control with acetaminophen -Bowel regimen: Senokot, MiraLAX -Heart healthy diet -DVT prophylaxis with Eliquis -Full code Problem List: 1. Tachycardia Pain Ratin Pain Location: None Pain Goal: Remain pain free Pain Plan: See assessment Tomorrow's Labs & Rationales: BMP - on lasix Brien Cunningham MD 01/13/18 1444: Attending MD Review Statement Attending Statement Attending MD Statement: examined this patient, discuss w/resident/PA/STEAMING CABINET TENDER, agreed w/resident/PA/STEAMING CABINET TENDER, discussed with nursing Attending Assessment/Plan: I have seen the patient, discussed the management plan with the house staff, agree with the management plan and the nurses. Patient currently denies any specific symptoms of chest pain shortness of breath palpitations. Sitting up in bed and having lunch. No acute events overnight On examination, vital signs-blood pressure of 110/68, heart rate of 91, respiratory rate of 18, afebrile, saturating 94% on 2 l of oxygen Assessment and Plan + A. fib with RVR - Switched to Carvedilol. Echo shows preserved left ventricle ejection fraction without any focal wall motion abnormalities and mild concentric left ventricular hypertrophy with no major valvular abnormalities. Patient already anticoagulated. Will follow up on cardiology recommendations + Acute exacerbation of congestive heart failure - continue diuresis with a net output of approximately 1-1.5 L per day. + History of history of DVT and PE in remote past, hypothyroidism, hypertension, bipolar disorder, TBI + Continue telemetry
--- NOTE | 2018-01-13 11:19 | PN- Cardiology ---
Subjective Subjective: The patient is alert, awoken from sleep The events of the last 24 hours as well as telemetry were reviewed. Review of Systems: The review of systems is negative for chest pains, palpitations nor lightheadedness. The remainder of the 14 point review of systems is noncontributory with the exception of above. Objective Vital Signs and I&Os Vital Signs Date Time Temp Pulse Resp B/P B/P Pulse O2 O2 Flow FiO2 Mean Ox Delivery Rate 01/13 0915 91 110/68 01/13 0800 93 Nasal 2.0L Cannula 01/13 0744 98.0 91 18 110/68 96 01/13 0000 Nasal 2.0L Cannula 01/12 2244 97.8 114 20 110/78 93 Nasal 2.0L Cannula 01/12 2142 114 110/78 01/12 1600 97 Nasal 2.0L Cannula 01/12 1432 97.6 90 18 104/70 94 Nasal Cannula 01/12 1234 106/72 Intake & Output 01/13 1600 01/13 0800 01/13 0000 01/12 1600 01/12 0800 01/12 0000 Intake Total 120 120 700 0 Output Total 500 625 800 Balance -380 120 75 -800 0 Intake, IV 250 Intake, Oral 120 120 450 0 Output, Urine 500 625 800 Patient 232 lb 230 lb Weight Weight Bed scale Bed scale Measurement Method Physical Exam: General: Nontoxic, no apparent distress. HEENT: Sclera and conjunctiva within normal limits, without xanthelasmas. Neck: Carotids 2+ without bruits. Respiratory: Scattered rhonchi, air movement is good, without accessory respiratory muscle use. Heart: Regular rate and rhythm, without murmurs, without JVD. Abdomen: Soft, nontender, no masses, normoactive bowel sounds. Extremities: Without clubbing, cyanosis, without edema. Neuro: Nonfocal exam, strength, 5 out of 5 Skin: Within normal limits without lesions. Psych: Mood and affect: Normal Current Medications: Current Medications Sig/Connie Start time Last Medication Dose Route Stop Time Status Admin Acetaminophen 650 MG Q4P PRN 01/12 0300 AC 01/12 PO 2140 Apixaban 5 MG BID 01/11 2330 AC 01/13 PO 0915 Atorvastatin Calcium 40 MG QPM 01/12 2100 AC 01/12 PO 214 Benztropine Mesylate 1 MG BID 05/12 0900 AC 01/13 PO 0914 Bisacodyl 10 MG ONCE ONE 01/12 2345 DC [place] 01/12 2346 Carvedilol 3.125 MG BID 01/12 2100 AC 01/13 PO 0915 Furosemide 20 MG 7:30 AM, & 4:30 PM 01/12 1745 AC 01/13 IV 0914 Levothyroxine Sodium 0.2 MG DAILY AC 01/12 0700 AC 01/12 PO 0602 Nifedipine 30 MG DAILY 01/13 0900 CAN PO Nifedipine 30 MG DAILY 01/12 0900 DC 01/12 PO 0904 Ondansetron HCl 4 MG Q6P PRN 01/13 1030 AC IV Ondansetron HCl 4 MG ONCE ONE 01/12 2200 DC 01/12 IV 01/12 220 2211 Polyethylene Glycol 17 GM DAILY 01/12 1430 AC 01/13 PO 0914 Quetiapine Fumarate 300 MG DAILY 01/12 0900 AC 01/13 PO 0915 Quetiapine Fumarate 300 MG QPM 01/11 2330 AC 01/12 PO 2141 Senna/Docusate Sodium 1 TAB BID PRN 01/12 1430 AC 01/12 PO 2142 Sodium Chloride 250 ML BOLUS ONE 01/12 1115 DC 01/12 IV 01/12 1214 1109 Results Last 48 Hrs of Labs/Mics: Laboratory Tests 01/13/18 0652: Anion Gap 7, Estimated GFR > 60, BUN/Creatinine Ratio 22.0, Magnesium 2.2, CBC w Diff NO MAN DIFF REQ, RBC 4.46 L, MCV 89.0, MCH 29.4, MCHC 33.0, RDW 15.7 H, MPV 7.4, Gran % 73.3, Lymphocytes % 17.3 L, Monocytes % 7.7, Eosinophils % 1.4, Basophils % 0.3, Absolute Granulocytes 5.7, Absolute Lymphocytes 1.4, Absolute Monocytes 0.6, Absolute Eosinophils 0.1, Absolute Basophils 0 01/12/18 1657: Magnesium Cancelled 01/12/18 1115: CBC w Diff NO MAN DIFF REQ, RBC 4.57 L, MCV 89.0, MCH 29.2, MCHC 32.8 L, RDW 15.6 H, MPV 7.3 L, Gran % 82.9 H, Lymphocytes % 9.7 L, Monocytes % 6.8, Eosinophils % 0.4, Basophils % 0.2, Absolute Granulocytes 8.2 H, Absolute Lymphocytes 1.0 L, Absolute Monocytes 0.7 H, Absolute Eosinophils 0, Absolute Basophils 0 01/12/18 0612: Anion Gap 12, Estimated GFR > 60, BUN/Creatinine Ratio 27.5 H, Magnesium 1.8 01/12/18 0026: Troponin I < 0.01, TSH 10.900 H, Thyroxine (T4) 7.0 01/11/18 1835: Anion Gap 12, Estimated GFR > 60, BUN/Creatinine Ratio 23.0, Glucose 96, Calcium 9.4, Total Bilirubin 0.8, AST 29, ALT 47, Alkaline Phosphatase 72, Troponin I < 0.01, [id number]-[id number] Pept 1230 H, Total Protein 7.6, Albumin 4.4, Globulin 3.2, Albumin/Globulin Ratio 1.4, PT 17.5 H, INR 1.60 H, D-Dimer High Sensitivty 232, CBC w Diff NO MAN DIFF REQ, RBC 5.03, MCV 88.6, MCH 29.4, MCHC 33.2, RDW 15.5 H, MPV 6.9 L, Gran % 66.0, Lymphocytes % 20.6, Monocytes % 11.6 H, Eosinophils % 1.6, Basophils % 0.2, Absolute Granulocytes 5.6, Absolute Lymphocytes 1.7, Absolute Monocytes 1.0 H, Absolute Eosinophils 0.1, Absolute Basophils 0 Assessment/Plan Assessment/Plan The patient is a 77-year-old gentleman with a past medical history of atrial fibrillation, hypertension, prior DVT, schizophrenia, hypertension and hypothyroidism. He presents to our hospital with symptoms of increasing dyspnea over a period of several weeks to a month as well as complaints of increasing leg weakness while ambulating. He was found to have atrial fibrillation with rapid ventricular response. The patient subsequently had 2 negative troponin isoenzymes; however, an elevated BNP at 1230. The patient has limited historian capabilities. Atrial fibrillation: The patient has known atrial fibrillation and is currently anticoagulated ( albeit for a DVT; however, with therapeutic doses). His heart rate control is improved with his current medication regimen. At this time, I would discontinue his regimen of nifedipine, and increase his dosage of carvedilol for his underlying atrial fibrillation as well as likely congestive heart failure. Dyspnea: The patient has evidence for likely acute on chronic congestive heart failure. His underlying LV function is unknown, and we will attempt to obtain his outpatient echocardiogram versus a repeat during his admission given his acute decompensation. Rate control will be attempted for his underlying atrial fibrillation with an agent such as carvedilol, and if blood pressure allows, further additional treatment agents with GANGA inhibitors or angiotensin receptor blockers may be attempted. We will continue with diuresis, targeting a net output of approximately 1 L per day Continue telemetry? Yes
--- NOTE | 2018-01-13 13:38 | ECHOCARDIOGRAM REPORT ---
JAYSON GILLIAM Age: 77 : 1940 Gender: M Exam Date: 01/13/2018 10:12 Exam Location: [address] Ht (in): 69 Wt (lb): 230 BSA: 2.29 BP: 110 / 78 Ordering Physician: Brian Cheatham MD Referring Physician: Emmanuel Zeng M.D. Technologist: [facility] Room Number: 179-01 Indications: HEART FAILURE Rhythm: Technical Quality: Fair FINDINGS Left Ventricle Normal LV chamber size with mild concentric LVH. The estimated LVEF is 55% there are no focal wall motion abnormalities. Right Ventricle Normal-appearing right ventricle structure and function Right Atrium Normal-appearing right atrium Left Atrium Mildly dilated left atrium Mitral Valve Mildly calcified mitral valve leaflets and annulus. There is normal leaflet opening. There is trace mitral insufficiency. Aortic Valve Normal appearing trileaflet aortic valve with normal leaflet opening Tricuspid Valve Grossly normal appearing tricuspid valve. There is trace tricuspid regurgitation. An accurate estimation of the PA systolic pressure could not be obtained. Pulmonic Valve Grossly normal appearing pulmonic valvular leaflet structure and function Pericardium Normal pericardium Great Vessels Mildly dilated aortic root when indexed for height and age. CONCLUSIONS Normal LV chamber size with mild concentric LVH. The estimated LVEF is 55% there are no focal wall motion abnormalities. Mildly dilated left atrium. There is trace mitral insufficiency. Mildly dilated aortic root when indexed for height and age. Emmanuel Zeng M.D. (Electronically Signed) Final Date: 13 Jan 2018 13:38 MEASUREMENTS (Male / Female) Normal Values 2D ECHO LV Diastolic Diameter PLAX 4.5 cm 4.2 - 5.9 / 3.9 - 5.3 cm LV Systolic Diameter PLAX 2.9 cm 2.1 - 4.0 cm LV Fractional Shortening PLAX 35.6 % 25 - 46 % LV Ejection Fraction 2D Teich 65.2 % IVS Diastolic Thickness 1.4 cm LVPW Diastolic Thickness 1.3 cm LV Relative Wall Thickness 0.6 RV Internal Dim ED PLAX 3.5 cm 1.9 - 3.8 cm LVOT Diameter 2.2 cm Aortic Root Diameter 3.3 cm LA Systolic Diameter LX 4.9 cm 3.0 - 4.0 / 2.7 - 3.8 cm LA Volume 68.0 cm 18 - 58 / 22 - 52 cm Ascending Aorta Diameter 4.1 cm DOPPLER AV Peak Velocity 97.5 cm/s AV Peak Gradient 3.8 mmHg AV Mean Velocity 76.3 cm/s AV Mean Gradient 3.0 mmHg AV Velocity Time Integral 16.2 cm LVOT Peak Velocity 87.2 cm/s LVOT Peak Gradient 3.0 mmHg LVOT Mean Velocity 65.6 cm/s LVOT Mean Gradient 2.0 mmHg LVOT Velocity Time Integral 16.0 cm LVOT Stroke Volume 60.8 cm AV Area Cont Eq vti 3.8 cm AV Area Cont Eq pk 3.4 cm MV Peak Velocity 83.4 cm/s MV Peak Gradient 2.8 mmHg MV Mean Velocity 51.6 cm/s MV Mean Gradient 1.0 mmHg Mitral E Point Velocity 85.9 cm/s MV PHT Velocity 66.4 cm/s MV Deceleration [place] 340.0 cm/s MV Pressure Half Time 58.6 ms MV Area PHT 3.8 cm MV Deceleration Time 174.0 ms TR Peak Velocity 99.3 cm/s TR Peak Gradient 3.9 mmHg Right Atrial Pressure 5.0 mmHg Pulmonary Artery Systolic Pressu 8.9 mmHg Right Ventricular Systolic Press 8.9 mmHg PV Peak Velocity 72.3 cm/s PV Peak Gradient 2.1 mmHg PV Mean Velocity 56.9 cm/s PV Mean Gradient 1.0 mmHg PV Velocity Time Integral 11.0 cm LV E' Lateral Velocity 6.5 cm/s Mitral E to LV E' Lateral Ratio 13.2 LV E' Septal Velocity 6.1 cm/s Mitral E to LV E' Septal Ratio 14.0
[2018-01-13 15:02] VITALS: BP 90/62
[2018-01-13 16:15] VITALS: BP 102/70
[2018-01-13 21:23] VITALS: BP 122/72
[2018-01-14 06:28] VITALS: BP 108/76
--- NOTE | 2018-01-14 07:38 | PN- Housestaff ---
Kelsey BENTLEY,Ivan 01/14/18 0737: Subjective Follow-up For: Yonatan hall with RVR Decompensated heart failure Tele-Events Since Last Visit: Yonatan hall with HR [id number], averaging in the 100s, with short runs of tachycardia up to 120s, 6 beat run of NSVT in the a.m., patient was asymptomatic, PVCs throughout the night. Subjective: Patient was seen and examined at bedside. He is resting, states that he slept well and currently denies any chest pain, palpitations, shortness of breath, nausea, vomiting, fever, chills. He is a relatively poor historian but denies any palpitations overnight, is questioned due to the NSVT and PVCs noted overnight. Review of Systems Constitutional: Reports: see HPI. Objective Last 24 Hrs of Vital Signs/I&O Vital Signs Date Time Temp Pulse Resp B/P B/P Pulse O2 O2 Flow FiO2 Mean Ox Delivery Rate 01/14 0730 104 108/76 01/14 0628 98.3 104 20 108/76 96 Room Air 01/14 0000 Nasal 1.0L Cannula 01/13 2123 98.0 96 122/72 93 Room Air 01/13 2122 99 122/72 01/13 1615 108 102/70 01/13 1502 98.1 90 20 90/62 95 Nasal 2.0L Cannula 01/13 0915 91 110/68 01/13 0800 93 Nasal 2.0L Cannula 01/13 0744 98.0 91 18 110/68 96 Intake & Output 01/14 0800 01/14 0000 01/13 1600 Intake Total 240 800 Output Total 730 010 3974 Balance -275 -560 -550 Intake, IV Intake, Oral 240 800 Output, Urine 784 629 9153 Patient 229 lb Weight Weight Bed scale Measurement Method Physical Exam General Appearance: Alert, Oriented X3, Cooperative, No Acute Distress Skin Temp/Moisture Exam: Warm/Dry Sepsis Skin Exam (color): Normal for Ethnicity Cardiovascular: Normal S1, Normal S2, tachycardia, HR 110s, irregularly irregular rhythm Lungs: Clear to Auscultation, Normal Air Movement Abdomen: Normal Bowel Sounds, Soft, No Tenderness Neurological: Normal Speech, Normal Tone, Sensation Intact Extremities: No Clubbing, No Cyanosis, 1+ edema of the distal LEs bilatearlly Current Medications: Current Medications Sig/Connie Start time Last Medication Dose Route Stop Time Status Admin Acetaminophen 650 MG Q4P PRN 01/12 0300 AC 01/13 PO 1623 Apixaban 5 MG BID 01/11 2330 AC 01/14 PO 0731 Atorvastatin Calcium 40 MG QPM 01/12 2100 AC 01/13 PO 2122 Benztropine Mesylate 1 MG BID 01/12 0900 AC 01/14 PO 0730 Carvedilol 6.25 MG BID 01/13 2100 AC 01/14 PO 0730 Carvedilol 3.125 MG BID 01/12 2100 DC 01/13 PO 0915 Furosemide 20 MG 7:30 AM, & 4:30 PM 01/12 1745 AC 01/14 IV 0730 Levothyroxine Sodium 0.2 MG DAILY AC 01/12 0700 AC 01/14 PO 0611 Ondansetron HCl 4 MG Q6P PRN 01/13 1030 AC IV Polyethylene Glycol 17 GM DAILY 01/12 1430 AC 01/14 PO 0730 Quetiapine Fumarate 300 MG DAILY 01/12 09 AC 01/14 PO 0731 Quetiapine Fumarate 300 MG QPM 01/11 233 AC 01/13 PO 2123 Senna/Docusate Sodium 1 TAB BID PRN 01/12 1430 AC 01/12 PO 2142 Last 24 Hrs of Lab/Ramon Results Last 24 Hrs of Labs/Mics: Laboratory Tests 01/14/18 1029: CBC w Diff NO MAN DIFF REQ, RBC 4.55 L, MCV 89.6, MCH 29.4, MCHC 32.8 L, RDW 15.4 H, MPV 7.0 L, Gran % 76.1 H, Lymphocytes % 14.5 L, Monocytes % 7.1, Eosinophils % 2.0, Basophils % 0.3, Absolute Granulocytes 5.9, Absolute Lymphocytes 1.1 L, Absolute Monocytes 0.5, Absolute Eosinophils 0.2, Absolute Basophils 0 01/14/18 0630: Anion Gap 9, Estimated GFR > 60, BUN/Creatinine Ratio 21.0, Magnesium 2.1 Assessment/Plan Assessment: Patient is a 77-year-old male with a image significant for A. fib, DVT status post IVC filter, HTN, schizophrenia who presented complaining of unsteady gait, lower extremity swelling, and hypertension. #A. fib with RVR Patient's home dose of nifedipine was discontinued, he was started on carvedilol in the hospital which has been titrated up during this hospitalization. Heart rate remains elevated -Continue carvedilol 6.25 milligrams twice daily, will attempt to up titrate as blood pressure allows, however BP remains borderline today #decompensated heart failure Echo done over the weekend shows mild LVH with normal LVEF (55%). Records were obtained from the [place] results of an echocardiogram in December 2017. Patient only has 1+ distal lower extremity edema, and is saturating well off of oxygen -A. fib likely secondary to rapid ventricular rate given preserved ejection fraction #vomiting over the weekend, patient on Eliquis Patient reportedly had an episode of maroon emesis over the weekend, given that he is taking Eliquis this is concerning for a possible GI bleed -We will continue to monitor CBCs for now #Chronic medical problems -Continue home medication regimen, including current dose of levothyroxine as it was reportedly just increased. Diet: Heart healthy DVT prophylaxis: Eliquis, Alps CODE STATUS: Full code Problem List: 1. Acute CHF 2. Rapid atrial fibrillation Pain Ratin Pain Location: none Pain Goal: Remain pain free Pain Plan: pain pathway Tomorrow's Labs & Rationales: cbc, bep Roberto BENTLEY,Karma 01/14/18 1050: Attending MD Review Statement Attending Statement Attending MD Statement: examined this patient, discuss w/resident/PA/DAIRY HELPER, agreed w/resident/PA/DAIRY HELPER, reviewed EMR data (avail), discussed with nursing, discussed with case mgmt, reviewed images Attending Assessment/Plan: Patient feels that his leg swelling is better. This is a 77-year-old male with a past medical history of atrial fibrillation, DVT DVT and on chronic anticoagulation as an outpatient, hypothyroidism who is here with new onset heart failure. At this point given the normal EF and no valvular abnormalities it appears that it's diastolic heart failure. We are diuresing him with IV Lasix and his leg swelling has improved. However his pressure remains borderline and his heart rate is still high, patient feels that his leg swelling is better. We need to speak to cardiology about other options for rate control and timing of by mouth diuretics
[2018-01-14 10:58] LABS: ABSOLUTE BASOPHIL COUNT 0 /CUMM (0.0-0.2); ABSOLUTE EOSINOPHIL COUNT 0.2 /CUMM (0.0-0.7); ABSOLUTE GRANULOCYTE CT 5.9 /CUMM (1.4-6.5); ABSOLUTE LYMPH COUNT 1.1 /CUMM (1.2-3.4); ABSOLUTE MONOCYTE COUNT 0.5 /CUMM (0.10-0.60); BASOPHIL % 0.3 % (0.0-2.0); GRANULOCYTE % 76.1 % (42.2-75.2); HEMATOCRIT 40.7 % (42-52); MEAN CORPUSCULAR HGB 29.4 PG (27.0-31.0); MEAN CORPUSCULAR HGB CONC 32.8 G/DL (33.0-37.0); MEAN CORPUSCULAR VOLUME 89.6 FL (80.0-94.0); PLATELET COUNT 187 /CUMM (130-400); RBC DISTRIBUTION WIDTH 15.4 % (11.5-14.5); RED BLOOD CELL CT 4.55 /CUMM (4.70-6.10); WHITE BLOOD CELL COUNT 7.7 /CUMM (4.8-10.8)
--- NOTE | 2018-01-14 12:01 | PN- Cardiology ---
See Addendum Subjective Subjective: Feels he is progressing well. Denies palpitations. Objective Vital Signs and I&Os Vital Signs Date Time Temp Pulse Resp B/P B/P Pulse O2 O2 Flow FiO2 Mean Ox Delivery Rate 01/14 0932 107 16 96 Room Air 01/14 0800 Nasal 1.0L Cannula 01/14 0730 104 108/76 01/14 0628 98.3 104 20 108/76 96 Room Air 01/14 0000 Nasal 1.0L Cannula 01/13 2123 98.0 96 122/72 93 Room Air 01/13 212 99 122/72 01/13 1615 108 102/70 01/13 1502 98.1 90 20 90/62 95 Nasal 2.0L Cannula Intake & Output 01/14 1600 01/14 0800 01/14 0000 01/13 1600 01/13 0800 01/13 0000 Intake Total 240 800 120 120 Output Total 553 171 0180 500 Balance -275 -560 -550 -380 120 Intake, IV Intake, Oral 240 800 120 120 Output, Urine 643 386 9484 500 Patient 229 lb 232 lb Weight Weight Bed scale Bed scale Measurement Method Physical Exam: General: no apparent distress. Alert. Eyes: No obvious scleral icterus. HEENT: No jugular venous distention or abnormal jugular venous pulsations. Cardiovascular: Normal intensity S1/S2. Irregular Respiratory: Lungs clear to auscultation bilaterally. Abdomen: Soft, nontender with no guarding or rebound tenderness. Musculoskeletal: No clubbing or cyanosis noted; trace lower extremity edema Skin: warm Neurologic: No gross focal deficits noted. Current Medications: Current Medications Sig/Connie Start time Last Medication Dose Route Stop Time Status Admin Acetaminophen 650 MG Q4P PRN 01/12 0300 AC 01/13 PO 1623 Apixaban 5 MG BID 01/11 2330 AC 01/14 PO 0731 Atorvastatin Calcium 40 MG QPM 01/12 2100 AC 01/13 PO 212 Benztropine Mesylate 1 MG BID 01/12 09 AC 01/14 PO 0730 Carvedilol 6.25 MG BID 01/13 2100 AC 01/14 PO 0730 Carvedilol 3.125 MG BID 01/12 2100 DC 01/13 PO 0915 Furosemide 20 MG 7:30 AM, & 4:30 PM 01/12 1745 AC 01/14 IV 0730 Levothyroxine Sodium 0.2 MG DAILY AC 01/12 0700 AC 01/14 PO 0611 Ondansetron HCl 4 MG Q6P PRN 01/13 1030 DC IV Polyethylene Glycol 17 GM DAILY 01/12 1430 AC 01/14 PO 0730 Quetiapine Fumarate 300 MG DAILY 01/12 0900 AC 01/14 PO 0731 Quetiapine Fumarate 300 MG QPM 01/11 2330 AC 01/13 PO 2123 Senna/Docusate Sodium 1 TAB BID PRN 01/12 1430 AC 01/12 PO 2142 Results Last 48 Hrs of Labs/Mics: Laboratory Tests 01/14/18 1029: CBC w Diff NO MAN DIFF REQ, RBC 4.55 L, MCV 89.6, MCH 29.4, MCHC 32.8 L, RDW 15.4 H, MPV 7.0 L, Gran % 76.1 H, Lymphocytes % 14.5 L, Monocytes % 7.1, Eosinophils % 2.0, Basophils % 0.3, Absolute Granulocytes 5.9, Absolute Lymphocytes 1.1 L, Absolute Monocytes 0.5, Absolute Eosinophils 0.2, Absolute Basophils 0 01/14/18 0630: Anion Gap 9, Estimated GFR > 60, BUN/Creatinine Ratio 21.0, Magnesium 2.1 01/13/18 0652: Anion Gap 7, Estimated GFR > 60, BUN/Creatinine Ratio 22.0, Magnesium 2.2, CBC w Diff NO MAN DIFF REQ, RBC 4.46 L, MCV 89.0, MCH 29.4, MCHC 33.0, RDW 15.7 H, MPV 7.4, Gran % 73.3, Lymphocytes % 17.3 L, Monocytes % 7.7, Eosinophils % 1.4, Basophils % 0.3, Absolute Granulocytes 5.7, Absolute Lymphocytes 1.4, Absolute Monocytes 0.6, Absolute Eosinophils 0.1, Absolute Basophils 0 01/12/18 1657: Magnesium Cancelled Recent Imaging Studies: Telemetry tracings are personally reviewed and show atrial fibrillation with borderline ventricular response rate Echo: Normal LV chamber size with mild concentric LVH. The estimated LVEF is 55% there are no focal wall motion abnormalities. Mildly dilated left atrium. There is trace mitral insufficiency. Mildly dilated aortic root when indexed for height and age. Assessment/Plan Assessment/Plan 1. Atrial fibrillation on Eliquis 2. Heart failure with preserved ejection fraction 3. History of prior DVT 4. History of hypertension 5. History of schizophrenia 6. History of hypothyroidism 7. Mild aortic dilatation Continue telemetry? Yes
[2018-01-14 14:39] VITALS: BP 106/66
[2018-01-14 21:36] VITALS: BP 108/80
[2018-01-15 06:42] VITALS: BP 96/60
--- NOTE | 2018-01-15 07:27 | PN- Housestaff ---
Subjective Follow-up For: Yonatan hall with RVR Borderline BP Tele-Events Since Last Visit: Yonatan hall with HR [id number], with PVCs, averaging in the 41x000 Subjective: Patient was seen and examined at bedside. He is resting comfortably. He had no acute events overnight. Patient is overall poor historian but remains alert and oriented 3 and he denies any chest pain, palpitations, nausea, vomiting, fever, chills. Review of Systems Constitutional: Reports: see HPI. Objective Last 24 Hrs of Vital Signs/I&O Vital Signs Date Time Temp Pulse Resp B/P B/P Pulse O2 O2 Flow FiO2 Mean Ox Delivery Rate 01/15 0642 96.1 78 18 96/60 95 Room Air 01/14 2211 111 128/76 01/14 2136 97.9 94 22 108/80 94 Room Air 01/14 1439 96.7 84 18 106/66 92 Room Air 01/14 0932 107 16 96 Room Air 01/14 0800 Nasal 1.0L Cannula 01/14 0730 104 108/76 Intake & Output 01/15 0800 01/15 0000 01/14 1600 Intake Total 502 432 Output Total 1250 1600 Balance -748 -1168 Intake, IV 12 12 Intake, Oral 490 420 Output, Urine 1250 1600 Patient 224 lb Weight Physical Exam General Appearance: Alert, Oriented X3, Cooperative, No Acute Distress Cardiovascular: Regular Rate, Normal S1, Normal S2 Lungs: Clear to Auscultation, Normal Air Movement Abdomen: Normal Bowel Sounds, Soft, No Tenderness Neurological: Normal Gait, Normal Speech, Strength at 5/5 X4 Ext Current Medications: Current Medications Sig/Connie Start time Last Medication Dose Route Stop Time Status Admin Acetaminophen 650 MG Q4P PRN 01/12 0300 AC 01/13 PO 1623 Apixaban 5 MG BID 01/11 2330 AC 01/14 PO 221 Atorvastatin Calcium 40 MG QPM 01/12 2100 AC 01/14 PO 221 Benztropine Mesylate 1 MG BID 01/12 0900 AC 01/14 PO 221 Bisacodyl 10 MG Q12P PRN 01/14 1930 AC RI Bisacodyl 5 MG DAILY 01/14 1926 AC 01/14 PO 221 Carvedilol 6.25 MG BID 01/13 2100 AC 01/14 PO 221 Furosemide 20 MG 7:30 AM, & 4:30 PM 01/12 1745 AC 01/14 IV 1617 Levothyroxine Sodium 0.2 MG DAILY AC 01/12 0700 AC 01/15 PO 0620 Ondansetron HCl 4 MG Q6P PRN 01/13 1030 DC IV Patient Medication 1 ED ONE ONE 01/14 1515 DC Teaching ED 01/14 1516 Polyethylene Glycol 17 GM DAILY 01/12 1430 AC 01/14 PO 0730 Quetiapine Fumarate 300 MG DAILY 01/12 0900 AC 01/14 PO 0731 Quetiapine Fumarate 300 MG QPM 01/11 2330 AC 01/14 PO 2211 Senna/Docusate Sodium 2 TAB DAILY 01/14 1926 AC 01/14 PO 2211 Senna/Docusate Sodium 1 TAB BID PRN 01/12 1430 DC 01/12 PO 2142 Assessment/Plan Assessment: Patient is a 77-year-old male with a image significant for A. fib, DVT status post IVC filter, HTN, schizophrenia who presented complaining of unsteady gait, lower extremity swelling, and hypertension. #A. fib with RVR Heart rate well controlled today averaging [id number] on current regimen -Continue carvedilol 6.25 milligrams twice daily, will attempt to up titrate as blood pressure allows, however BP remains borderline today #decompensated heart failure Echo done over the weekend shows mild LVH with normal LVEF (55%). Records were obtained from the [facility] results of an echocardiogram in December 2017. Patient only has 1+ distal lower extremity edema, and is saturating well off of oxygen -Heart failure likely secondary to rapid ventricular rate given preserved ejection fraction -Patient will be discharged on carvedilol 6.25 mg twice daily, nifedipine has been stopped. -Patient and family have requested referral to [facility] as they are not happy with services at the [facility]. #Constipation Patient has not had a bowel movement approximately 6 days despite bowel regimen. Patient reports chronic constipation -Patient successfully had a bowel movement after suppository #Chronic medical problems -Continue home medication regimen, including current dose of levothyroxine as it was reportedly just increased. Diet: Heart healthy DVT prophylaxis: Thais Bermudez CODE STATUS: Full code Problem List: 1. Acute CHF Pain Ratin Pain Location: none Pain Goal: Remain pain free Pain Plan: pain pathway Tomorrow's Labs & Rationales: none
--- NOTE | 2018-01-15 08:32 | PN- Cardiology ---
Subjective Subjective: Patient feels well. Shortness of breath or palpitations. Review of Systems: Eyes no blurred or double vision Ears no deafness or ringing Nose and throat no recurrent sinusitis Lungs per history of present illness Heart per history of present illness Abdomen no nausea vomiting Musculoskeletal occasional muscle and joint pains Psych no anxiety or depression Neuro without recurrent headache or seizures Endocrine no heat or cold intolerance Objective Vital Signs and I&Os Vital Signs Date Time Temp Pulse Resp B/P B/P Pulse O2 O2 Flow FiO2 Mean Ox Delivery Rate 01/15 0800 Room Air Room Air 01/15 0758 89 118/88 01/15 0642 96.1 78 18 96/60 95 Room Air 01/14 2211 111 128/76 01/14 2136 97.9 94 22 108/80 94 Room Air 01/14 1439 96.7 84 18 106/66 92 Room Air 01/14 0932 107 16 96 Room Air Intake & Output 01/15 1600 01/15 0800 01/15 0000 01/14 1600 01/14 0800 01/14 0000 Intake Total 240 502 432 240 Output Total 625 1250 1600 275 800 Balance -385 -748 -1168 -275 -560 Intake, IV 12 12 Intake, Oral 240 490 420 240 Output, Urine 625 1250 1600 275 800 Patient 224 lb 229 lb Weight Weight Bed scale Measurement Method Physical Exam: Patient is a well-developed well-nourished male appearing in no acute distress HEENT is unremarkable Neck is supple there is no JVD Lungs are clear Heart irregular rhythm S1 and S2 are normal no murmurs gallops or rubs Abdomen bowel sounds positive Extremities trace edema Current Medications: Current Medications Sig/Connie Start time Last Medication Dose Route Stop Time Status Admin Acetaminophen 650 MG Q4P PRN 01/12 0300 AC 01/13 PO 1623 Apixaban 5 MG BID 01/11 2330 AC 01/15 PO 0755 Atorvastatin Calcium 40 MG QPM 01/12 2100 AC 01/14 PO 2212 Benztropine Mesylate 1 MG BID 01/12 0900 AC 01/15 PO 0755 Bisacodyl 10 MG Q12P PRN 01/14 1930 AC [place] Bisacodyl 5 MG DAILY 01/14 1926 AC 01/15 PO 0754 Carvedilol 6.25 MG BID 01/13 2100 AC 01/15 PO 0758 Furosemide 20 MG 7:30 AM, & 4:30 PM 01/12 1745 AC 01/15 IV 0752 Levothyroxine Sodium 0.2 MG DAILY AC 01/12 0700 AC 01/15 PO 0620 Patient Medication 1 ED ONE ONE 01/14 1515 TN Teaching ED 01/14 1516 Polyethylene Glycol 17 GM DAILY 01/12 1430 AC 01/15 PO 0752 Quetiapine Fumarate 300 MG DAILY 01/12 0900 AC 01/15 PO 0755 Quetiapine Fumarate 300 MG QPM 01/11 2330 AC 01/14 PO 2211 Senna/Docusate Sodium 2 TAB DAILY 01/14 1926 AC 01/15 PO 0755 Senna/Docusate Sodium 1 TAB BID PRN 01/12 1430 DC 01/12 PO 2142 Results Last 48 Hrs of Labs/Mics: Laboratory Tests 01/14/18 1029: CBC w Diff NO MAN DIFF REQ, RBC 4.55 L, MCV 89.6, MCH 29.4, MCHC 32.8 L, RDW 15.4 H, MPV 7.0 L, Gran % 76.1 H, Lymphocytes % 14.5 L, Monocytes % 7.1, Eosinophils % 2.0, Basophils % 0.3, Absolute Granulocytes 5.9, Absolute Lymphocytes 1.1 L, Absolute Monocytes 0.5, Absolute Eosinophils 0.2, Absolute Basophils 0 01/14/18 0630: Anion Gap 9, Estimated GFR > 60, BUN/Creatinine Ratio 21.0, Magnesium 2.1 Telemetry personally reviewed atrial fibrillation with a controlled response Assessment/Plan Assessment/Plan 1. Atrial fibrillation on Eliquis 2. Heart failure with preserved ejection fraction 3. History of prior DVT 4. History of hypertension 5. History of schizophrenia 6. History of hypothyroidism 7. Mild aortic dilatation Recommendations #1. Continue current medications #2. Ambulate with assistance #3. Given her borderline blood pressure at times would not increase carvedilol Continue telemetry? Yes
[2018-01-15] MEDS ORDERED: CARVEDILOL6.25 M1 PO ×2 (08:53→14:28)
--- NOTE | 2018-01-15 08:59 | Patient Discharge Instructions ---
Discharge Instructions General Discharge Information You were seen/treated for: A fib with Rapid ventricular rate decompensated heart failure Special Instructions: Follow-up with your primary care physician within 1 week. 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 Take all medications as directed. Call your doctor or return to the ER if he should experience any chest pain, shortness of breath, severe leg swelling, lightheadedness, loss of consciousness. Diet Recommended Diet: Heart Healthy Acute Coronary Syndrome Inclusion Criteria At DC or during hospital stay patient has or had the following: ACS DIAGNOSIS No Discharge Core Measures Meds if any: Prescribed or Continued at Discharge Meds if any: NOT Prescribed or Continued at Discharge Congestive Heart Failure Inclusion Criteria At DC or during hospital stay patient has or had the following: CHF DIAGNOSIS Yes Discharge Core Measures Meds if any: Prescribed or Continued at Discharge Meds if any: NOT Prescribed or Continued at Discharge Comment EF 55% Cerebrovascular accident Inclusion Criteria At DC or during hospital stay patient has or had the following: CVA/TIA Diagnosis No Discharge Core Measures Meds if any: Prescribed or Continued at Discharge Meds if any: NOT Prescribed or Continued at Discharge Venous thromboembolism Inclusion Criteria VTE Diagnosis No VTE Type NONE VTE Confirmed by (Test) NONE Discharge Core Measures - Per Current guidelines, there needs to be overlap - treatment for the first 5 days of Warfarin therapy. - If discharged on Warfarin prior to 5 days of - overlap therapy, the patient will need to be - assessed for post discharge needs including - *Post discharge parental anticoagulation - *Warfarin and/or parental anticoagulation education - *Follow up date to check INR post discharge At least 5 days overlap therapy as Inpatient No Meds if any: Prescribed or Continued at Discharge Note: Overlap Therapy is Warfarin and Anticoagulant Meds if any: NOT Prescribed or Continued at Discharge
--- NOTE | 2018-01-15 09:05 | PN- Student ---
Saurabh Pantoja 01/15/18 0848: Subjective Subjective: No overnight events reported. Patient states that he feels improvement over the past 2 days. He no longer notices swelling in his lower extremities and states he feels more stable on his feet in comparison to when he first arrived to the hospital. He denies any chest pain, palpitations or difficulty breathing. Objective Objective: Current Medications Sig/Connie Start time Last Medication Dose Route Stop Time Status Admin Acetaminophen 650 MG Q4P PRN 01/12 0300 AC 01/13 PO 1623 Apixaban 5 MG BID 01/11 2330 AC 01/15 PO 0755 Atorvastatin Calcium 40 MG QPM 01/12 2100 AC 01/14 PO 2212 Benztropine Mesylate 1 MG BID 01/12 0900 AC 01/15 PO 0755 Bisacodyl 10 MG Q12P PRN 01/14 1930 AC CA Bisacodyl 5 MG DAILY 01/14 192 AC 01/15 PO 0754 Carvedilol 6.25 MG BID 01/13 2100 AC 01/15 PO 0758 Furosemide 20 MG 7:30 AM, & 4:30 PM 01/12 1745 AC 01/15 IV 0752 Levothyroxine Sodium 0.2 MG DAILY AC 01/12 0700 AC 01/15 PO 0620 Patient Medication 1 ED ONE ONE 01/14 1515 DC Teaching ED 01/14 1516 Polyethylene Glycol 17 GM DAILY 01/12 1430 AC 01/15 PO 0752 Quetiapine Fumarate 300 MG DAILY 01/12 0900 AC 01/15 PO 0755 Quetiapine Fumarate 300 MG QPM 01/11 2330 AC 01/14 PO 2211 Senna/Docusate Sodium 2 TAB DAILY 01/14 1926 AC 01/15 PO 0755 Senna/Docusate Sodium 1 TAB BID PRN 01/12 1430 DC 01/12 PO 2142 Laboratory Tests 01/14 1029 Hematology CBC w Diff NO MAN DIFF REQ WBC (4.8 - 10.8 /CUMM) 7.7 RBC (4.70 - 6.10 /CUMM) 4.55 L Hgb (14.0 - 18.0 G/DL) 13.3 L Hct (42 - 52 %) 40.7 L MCV (80.0 - 94.0 FL) 89.6 MCH (27.0 - 31.0 PG) 29.4 MCHC (33.0 - 37.0 G/DL) 32.8 L RDW (11.5 - 14.5 %) 15.4 H Plt Count (130 - 400 /CUMM) 187 MPV (7.4 - 10.4 FL) 7.0 L Gran % (42.2 - 75.2 %) 76.1 H Lymphocytes % (20.5 - 51.1 %) 14.5 L Monocytes % (1.7 - 9.3 %) 7.1 Eosinophils % (0 - 5 %) 2.0 Basophils % (0.0 - 2.0 %) 0.3 Absolute Granulocytes (1.4 - 6.5 /CUMM) 5.9 Absolute Lymphocytes (1.2 - 3.4 /CUMM) 1.1 L Absolute Monocytes (0.10 - 0.60 /CUMM) 0.5 Absolute Eosinophils (0.0 - 0.7 /CUMM) 0.2 Absolute Basophils (0.0 - 0.2 /CUMM) 0 Vital Signs Date Time Temp Pulse Resp B/P B/P Pulse O2 O2 Flow FiO2 Mean Ox Delivery Rate 01/15 0800 Room Air Room Air 01/15 0758 89 118/88 01/15 0642 96.1 78 18 96/60 95 Room Air 01/14 2211 111 128/76 01/14 2136 97.9 94 22 108/80 94 Room Air 01/14 1439 96.7 84 18 106/66 92 Room Air 01/14 0932 107 16 96 Room Air Intake & Output 01/15 1600 01/15 0800 01/15 0000 Intake Total 240 502 Output Total 625 1250 Balance -385 -748 Intake, IV 12 Intake, Oral 240 490 Output, Urine 625 1250 Patient 224 lb Weight 01/12/18 Echocardiogram Impression: estimated LVEF 55%, no wall motion abnormalities, trace mitral insuffeciency, mild concentric LVH, mildly dilated aortic root Physical Exam: General apperance: No evidence of acute distress, sitting up right in chair CV: diminished heart sounds, irregularly irregular rhythm, no obvious MRG noted Pulm: posterior lung khan clear to ausculatation Abdomen: soft, non-tender, umbiliical hernia approx 2 cm in diameter Extremities: No peripheral edema noted, probable bilateral venous stasis dermatitis Skin: Errythematous pustules in sporadic distribution across chest and upper back likely folliculitis Results Results: Laboratory Tests 01/14/18 1029: CBC w Diff NO MAN DIFF REQ, RBC 4.55 L, MCV 89.6, MCH 29.4, MCHC 32.8 L, RDW 15.4 H, MPV 7.0 L, Gran % 76.1 H, Lymphocytes % 14.5 L, Monocytes % 7.1, Eosinophils % 2.0, Basophils % 0.3, Absolute Granulocytes 5.9, Absolute Lymphocytes 1.1 L, Absolute Monocytes 0.5, Absolute Eosinophils 0.2, Absolute Basophils 0 01/14/18 0630: Anion Gap 9, Estimated GFR > 60, BUN/Creatinine Ratio 21.0, Magnesium 2.1 01/13/18 0652: Anion Gap 7, Estimated GFR > 60, BUN/Creatinine Ratio 22.0, Magnesium 2.2, CBC w Diff NO MAN DIFF REQ, RBC 4.46 L, MCV 89.0, MCH 29.4, MCHC 33.0, RDW 15.7 H, MPV 7.4, Gran % 73.3, Lymphocytes % 17.3 L, Monocytes % 7.7, Eosinophils % 1.4, Basophils % 0.3, Absolute Granulocytes 5.7, Absolute Lymphocytes 1.4, Absolute Monocytes 0.6, Absolute Eosinophils 0.1, Absolute Basophils 0 01/12/18 1657: Magnesium Cancelled Assessment/Plan Assessment: Mr. Moore is a 77 year old male with a PMHx significant for A. fib, HTN, hyperlipidemia, hypothyroidism, schizophrenia and DVT who presented to the hospital on 01/11/18 with dyspnea and increasing leg weakness over 1 month. He was admited to the telemetry unit and has been followed for his A. fib and acute on chronic CHF. He has improved over the course of his hospitalization with the addition of Carvedilol and Lasix to his usual medications. Dr. Zeng and Dr. Rosales have both consulted on the patient as he does not have a mechanism inspector outside of the hospital. He typically recieves medical care at the [facility]. He was recently hospitalized at the [facility] for left popliteal DVT, he also had an IVC filter placed in 1994. Plan: Problem List: 1. Congestive Heart Failure 2. Atrial Fibrillation 3. Schizophrenia 4. Chronic medical problems #CHF: Patient initially presented with bilateral leg swelling and edema raising the suspicion for CHF. It was initially feared that this presentation was due to ischemic damage to the heart leading to decreased contractility. However the patient's EKG and cardiac enzymes were negative for acute myocardial infarction. There were no evident QT abnormalities on EKG from an arrythemia due to toxicity caused by his antipsychotic medication. Mr. Moore had an Echocardiogram done on 01/12 indicating an estimated LVEF of 55% with no wall motion abnormalities, trace mitral insuffeciency, and a mildly dilated aortic root. These findings are similart to that of the Echo performed at the [facility] on 12/12/17, however at that time the estimated LVEF was 65%. Additionally the patient's BNP was elevated at 1230 supporting the diagnosis of congestive heart failure. He was subsequently started on Lasix 20 mg IV QAM on 01/12/18 and has reported massive improvement in his symptoms. Today there is no evidence of peripheral edema, nor does the patient report any difficulty breathing or shortness of breath. He is medically stable for discharge today. -Discharge today -F/U with Cardiology -Continue Carvediolol -Discontinue Diuretics #Atrial Fibrillation: Patient states he was just recently diagnosed with A. Fib this spring at the [facility]. On PE the patient's heart rate has been tachycardic at times with an irregularly irregular rhythm. His EKG also supports A. Fib and when he first came in showed rapid ventricular rate. It is believed that this rapid ventricular rate contributed to his heart failure, due to the rapid firing of the ventricles decreasing the amount of blood being perfused. The patient was subsequently diuresed with Lasix 20 mg IV QAM and placed on a beta myla. Patient was initially started on 3.125 mg BID of Carvediolol on and the dose was increased to 6.25 mg BID on 01/13 as his blood pressure and HR tolerated. Patient has also been on Eliquis 5 mg BID, given his previous Hx of DVT and A. Fib. Patient will continue these medications at discharge. -Continue Eliquis 5mg BID PO -Continue Carvedilol 6.25 mg BID PO -f/u with Cardiology #Schizophrenia: Patient has a history of Schizophrenia that has been controlled with Quetiapine 300 mg BID. However Mr. Moore has also had some signs of EPS and has been taking Bentropine 1 mg BID PO to giselle these symptoms. Mr. Moore did not report any auditory, tactile or visual hallucinations. He will continue to f/u in outpatient setting for his ongoing management of Schizophrenia. -continue Quetiapine 300 mg BID PO -continue Benztropine 1 mg BID PO -f/u with outpatient psych #Chronic medical problems: -continue home medications as prescribed DVT PPX: Eliquis Diet: Heart Healthy Ivan Cole MD 01/15/18 1513: Resident Review Statement Resident Statement: Discussed with student, agree with his A/P
[2018-01-15] MEDS ORDERED: LASIX20 M1 PO ×2 (13:56→14:28)
[2018-01-15 14:26] VITALS: BP 110/80
== END 2018-01-15 15:20 | DRG 308 ==
LOC: ERH 18:02 → ERHI 20:04 → 1NO 20:04 → ENRESERV 20:25 → ENTRNSPT 22:02 → EDTRNSPTSTS 22:05 → 1NO 22:11 → CMPTRNSPT 22:27 → 1NO 01-12 13:41 → ENPENDDIS 01-15 14:28 → ENTRNSPT 01-15 15:04 → EDTRNSPT 01-15 15:12 → 1NO 01-15 15:20 → EDTRNSPTSTS 01-15 15:23 → CMPTRNSPT 01-15 15:28
PROVIDERS: Dermatology; Physician Assistant
DX: I48.91 Unspecified atrial fibrillation (principal); I50.33 Acute on chronic diastolic (congestive) heart failure; I11.0 Hypertensive heart disease with heart failure; Z79.01 Long term (current) use of anticoagulants; F20.9 Schizophrenia, unspecified; Z86.711 Personal history of pulmonary embolism; Z86.718 Personal history of other venous thrombosis and embolism; Z87.820 Personal history of traumatic brain injury; E66.9 Obesity, unspecified; Z68.33 Body mass index [BMI] 33.0-33.9, adult; E03.9 Hypothyroidism, unspecified; F31.9 Bipolar disorder, unspecified; R00.0 Tachycardia, unspecified
CPT/HCPCS: 1NSP; 36415; 36592; 71045; 82436; 93005; 93010; 93306; 97116-GO; 97161-GP; J1940; J2405; J7040

== ENCOUNTER 2018-01-18 11:49 | Emergency (ER) | payer OTHER, MEDICARE ==
[~2018-01-18 11:49] MED LIST: BENZTROPINE MESY1 M1 PO; CARVEDILOL6.25 M1 PO; ELIQUIS5 M1 PO; LASIX20 M1 PO; NIFEDIPINE ER30 M1 PO; QUETIAPINE FUM300 M1 PO; SIMVASTATIN40 M1 PO; SYNTHROID200 MCG PO
--- NOTE | 2018-01-18 12:23 | ED GENERAL ADULT ---
History of Present Illness General Chief Complaint: General Adult Stated Complaint: LOWER EXTREMITY WEAKNESS, INCREASE IN AFIB SYMPTOM Source: patient Exam Limitations: poor historian Vital Signs & Intake/Output Vital Signs & Intake/Output Vital Signs Date Time Temp Pulse Resp B/P B/P Pulse O2 O2 Flow FiO2 Mean Ox Delivery Rate 01/18 1719 98.3 96 18 123/78 98 Room Air 01/18 1648 98 01/18 1410 98.4 93 20 113/75 95 Room Air 01/18 1301 96 Room Air 01/18 1207 98.4 88 18 112/73 96 Room Air Allergies Coded Allergies: No Known Allergies (11/27/17) Reconcile Medications Apixaban (Eliquis) 5 MG TABLET 1 TAB PO BID a.fib (Reported) Benzonatate 200 MG CAPSULE 1 CAP PO TIDPRN PRN COUGH Benztropine Mesylate 1 MG TABLET 1 TAB PO BID TARDIVE DYSKINESIA (Reported) Carvedilol 6.25 MG TABLET 6.25 MG PO BID Rate control . Furosemide (Lasix) 20 MG TABLET 1 TAB PO DAILY CHF Levothyroxine Sodium (Synthroid) 200 MCG TABLET 1 TAB PO DAILY HYPOTHRYOIDISM (Reported) Quetiapine Fumarate 300 MG TABLET 1 TAB PO QPM SCHIZOPHRENIA (Reported) Quetiapine Fumarate 300 MG TABLET 2 TAB PO QPM SCHIZOPHRENIA (Reported) Simvastatin (Simvastatin*) 40 MG TABLET 1 TAB PO QPM HLD (Reported) Triage Note: 77M RETURNS AFTER DISCHARGE FROM HOSPITAL ON SUNDAY FOR DRY COUGH AND INCREASED LEG SWELLING AND GROIN SWELLING. REPORTS HE HAD SOME PALPITATIONS YESTERDAY BUT DENIES CP/PALP/SOB/HINKLE AT THIS TIME. TRACE EDEMA L>R AND APPEARS AFIB W HISTORY OF, CURRENTLY ON ELOQUIS AND ? LASIX. REPORTS SLIGHT PAIN WHEN HE URINATES. Triage Nurses Notes Reviewed? yes Onset: Abrupt Duration: day(s): (2-3), changing over time, continues in ED Timing: recent history Injury Environment: home Severity: mild, moderate No Modifying Factors: none HPI: 77-year-old male past medical history of atrial fibrillation, CHF, hypertension, DVT/PE presents for evaluation of shortness of breath and cough. Patient reports he was discharged from [facility] on Sunday of this week after being admitted with Yonatan hall with RVR and CHF exacerbation. He states that he was feeling well when he was discharged however the next day developed a dry cough and shortness of breath. The symptoms are worse on exertion. He has no chest pain is not coughing up any sputum. Lower extremity edema is at baseline much improved from previous admission. No fever no hemoptysis. He is on Eliquis for DVT and A. fib. He denies palpitations dizziness lightheadedness abdominal pain nausea vomiting diarrhea or any other associated symptoms (Félix Melton) Past History Travel History Traveled to [place] past 21 day No Medical History Any Pertinent Medical History? see below for history Neurological: NONE EENT: NONE Cardiovascular: AFIB, hypertension Respiratory: NONE Gastrointestinal: NONE Hepatic: NONE Renal: NONE Musculoskeletal: NONE Psychiatric: NONE Endocrine: NONE Blood Disorders: DVT, PE Cancer(s): NONE History of MRSA: No History of VRE: No History of CDIFF: No Surgical History Surgical History: ivc filter Psychosocial History Who do you live with Family Services at Home None What is your primary language Polish Tobacco Use: Refused to answer Family History Hx Contributory? No (Félix Melton) Review of Systems Review of Systems Constitutional: Reports: no symptoms. EENTM: Reports: no symptoms. Respiratory: Reports: see HPI, cough, short of breath. Cardiovascular: Reports: no symptoms. GI: Reports: no symptoms. Genitourinary: Reports: no symptoms. Musculoskeletal: Reports: no symptoms. Skin: Reports: no symptoms. Neurological/Psychological: Reports: no symptoms. Hematologic/Endocrine: Reports: no symptoms. Immunologic/Allergic: Reports: no symptoms. All Other Systems: Reviewed and Negative (Félix Melton) Physical Exam Physical Exam General Appearance: well developed/nourished, no apparent distress, alert, awake Head: atraumatic, normal appearance Eyes: Bilateral: normal appearance, PERRL, EOMI. Ears, Nose, Throat: normal pharynx, normal ENT inspection, hearing grossly normal Neck: normal inspection, supple, full range of motion, NO JVD Respiratory: chest non-tender, no respiratory distress, rhonchi (MILD BILATERAL) Cardiovascular: regular rate/rhythm, normal peripheral pulses Peripheral Pulses: 2+ radial (R), 2+ radial (L) Gastrointestinal: soft, non-tender Back: normal inspection, normal range of motion Extremities: normal inspection, normal range of motion, no edema Neurologic/Psych: no motor/sensory deficits, awake, alert, oriented x 3, normal gait, normal mood/affect Skin: intact, normal color, warm/dry Lymphatic: no anterior cervical catrachita Core Measures ACS in differential dx? No CVA/TIA Diagnosis: No Sepsis Present: No Sepsis Focused Exam Completed? No (Herman AUGUST,Félix) Progress Differential Diagnoses I considered the following diagnoses in my evaluation of the patient: [CHF exacerbation, COPD exacerbation, pneumonia, acute bronchitis, ] Plan of Care: Orders Procedure Date/time Status Heart Healthy Diet 01/18 D Active Add-on Test (ER Only) 01/18 1548 Active CULTURE,URINE 01/18 1402 Active TOTAL TRIODOTHYROXINE 01/18 1253 Complete FREE T4 01/18 1253 Complete TSH REFLEX 01/18 1220 Complete TROPONIN LEVEL 01/18 1220 Complete MAGNESIUM 01/18 1220 Complete COMPREHENSIVE METABOLIC PANEL 01/18 1220 Complete CBC WITHOUT DIFFERENTIAL 01/18 1220 Complete B-TYPE NATRIURETIC PEP (BNP) 01/18 1220 Complete URINALYSIS 01/18 1209 Complete EKG 01/18 1152 Active Laboratory Tests 01/18/18 1400: Urinalysis LIGHT H, Urine Color YEL, Urine Clarity HAZY H, Urine pH 6.5, Ur Specific [place] 1.015, Urine Protein NEG, Urine Ketones NEG, Urine Nitrite NEG, Urine Bilirubin NEG, Urine Urobilinogen 1.0, Ur Leukocyte Esterase SMALL H, Ur Microscopic SEDIMENT EXAMINED, Urine RBC 5-10 H, Urine WBC 5-10 H, Ur Epithelial Cells FEW, Urine Bacteria FEW H, Urine Hemoglobin SMALL H, Urine Glucose NEG 01/18/18 1253: Anion Gap 8, Estimated GFR > 60, BUN/Creatinine Ratio 23.6, Glucose 75, Calcium 9.7, Magnesium 2.0, Total Bilirubin 0.8, AST 24, ALT 35, Alkaline Phosphatase 63 , Troponin I < 0.01, Hvc-G-Nspdqaojtbr Pept 1190 H, Total Protein 6.8, Albumin 3.8, Globulin 3.0, Albumin/Globulin Ratio 1.3, Free T4 1.57, Total T3 0.95 L, TSH &T3 &Free T4 Intrp 9.240 H, CBC w Diff NO MAN DIFF REQ, RBC 5.08, MCV 89.7, MCH 29.6, MCHC 33.0, RDW 16.2 H, MPV 6.9 L, Gran % 70.4, Lymphocytes % 19.9 L , Monocytes % 7.6, Eosinophils % 1.6, Basophils % 0.5, Absolute Granulocytes 5.2 , Absolute Lymphocytes 1.5, Absolute Monocytes 0.6, Absolute Eosinophils 0.1, Absolute Basophils 0 Microbiology 01/18 1402 URINE ROUT: Urine Culture - RECD Patient seen and evaluated. He is here reporting dry cough and shortness of breath past few days. No fever or chest pain. He has some rhonchi on exam. No signs of hypoxia or cyanosis. Blood work EKG chest x-ray ordered. Due to patient's history of PE we'll check a CTA of the chest. DuoNeb ordered. Blood work does not show any acute findings/changes. Patient has a history of hypothyroidism. No pulmonary edema on x-ray CTA negative for PE or pneumonia. No signs of dissection. Patient was ambulated in the emergency department and is maintaining an oxygen saturation of 96%. He does not become visibly dyspneic. With his rhonchi on exam and reporting dry cough suspect that patient may have an acute bronchitis versus viral illness. Patient was given a prescription for Tessalon Perles. He is feeling better after DuoNeb here. Discussed return precautions in detail. Follow-up primary care doctor on Sunday return with any concerns case discussed with Dr. Bonilla he agrees Diagnostic Imaging: Viewed by Me: Radiology Read, CT Scan. Discussed w/RAD: Radiology Read, CT Scan. Radiology Impression: PATIENT: JAYSON GILLIAM PRESENT AGE: 77 PATIENT ACCOUNT NO: [id number] : 39 LOCATION: [facility] ORDERING PHYSICIAN: Félix AUGUST SERVICE DATE: 01/18/18 EXAM TYPE: CAT - CTA CHEST-PULMONARY EMBOLISM EXAMINATION: CT ANGIOGRAM OF THE CHEST WITH AND WITHOUT CONTRAST (CT PULMONARY ANGIOGRAM FOR PE) CLINICAL INFORMATION: Shortness of breath on exertion. History of DVT. Evaluate for acute pulmonary embolus. COMPARISON: Chest radiograph same day. TECHNIQUE: Prior to contrast administration, noncontrast localization images were obtained. Subsequently, multidetector volumetric imaging was performed from the thoracic inlet to below the diaphragms following the administration of 95 mL Optiray 320 intravenous contrast. No contrast reaction reported. Sagittal, coronal, and MIP oblique sagittal reformatted images were obtained on the CT workstation, uploaded to PACS, and reviewed. Total exam dose-length product 541.92 mGy-cm. FINDINGS: The timing of the contrast injection provides adequate opacification of the pulmonary arterial vasculature. There is no central luminal filling defect to suggest the presence of an acute pulmonary embolism. There is bibasilar subsegmental atelectasis. No overt consolidative disease. The trachea and major airways are patent. Visualized portions of the thoracic outlet including the thyroid gland are normal. There is a well marginated cystic mediastinal mass adjacent to the thoracic esophagus best illustrated on axial image 18 of 68 series 4 that demonstrates simple fluid characteristics. This lesion measures 3.8 cm in maximal transaxial dimension. The heart size is normal. No pericardial effusion. The aortic arch apex and the origins of the major aortic branches are grossly unremarkable. A chest wall is grossly intact. No acute osseous finding. Bridging disc osteophyte complexes fuse multiple consecutive vertebral segments within the thoracic spine. Limited visualization of the abdominal contents reveals a few well marginated benign-appearing cystic lesions within the liver. IMPRESSION: No evidence of acute pulmonary embolism. There is bibasilar subsegmental atelectasis. No overt consolidative disease. 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 A few well marginated cystic lesions are also partially visualized within the liver. VTE: negative DICTATED BY: Melonie BENTLEY, Kamar Hughes DATE/TIME DICTATED:01/18/181522 PARTS REMOVER:VICENTE DATE/ TIME TRANSCRIBED:01/18/181522 CONFIDENTIAL, DO NOT COPY WITHOUT APPROPRIATE AUTHORIZATION. CXR Impression: PATIENT: JAYSON GILLIAM PRESENT AGE: 77 PATIENT ACCOUNT NO: [id number] : 39 LOCATION: [facility] ORDERING PHYSICIAN: Félix AUGUST SERVICE DATE: 01/18/18 EXAM TYPE: RAD - XRY-PORTABLE CHEST XRAY EXAMINATION: XR PORTABLE CHEST CLINICAL INFORMATION: Palpitations, weakness. COMPARISON: Chest done on 01/11/2018. TECHNIQUE: Portable frontal view of the chest was obtained. FINDINGS: Both lungs are symmetrically expanded, appear clear. Previously identified mild blunting of the left lateral CP angle is no longer present. The cardiomediastinal silhouette is within normal limits, given the technique. The visualized upper abdomen is unremarkable. IMPRESSION: No acute cardiopulmonary disease. DICTATED BY: Cathleen Lim MD DATE/TIME DICTATED:01/18/181330 PARTS REMOVER:VICENTE DATE/TIME TRANSCRIBED:1330 CONFIDENTIAL, DO NOT COPY WITHOUT APPROPRIATE AUTHORIZATION. < Electronically signed in Other Vendor System> SIGNED BY: Cathleen Lim MD 01/18/18 1336 Initial ED EKG: A. fib rate 92, borderline T-wave abnormalities anterior lateral leads Prior EKG: unchanged (Félix Melton) Departure Departure Disposition: HOME OR SELF CARE Condition: Stable Clinical Impression Primary Impression: Acute bronchitis Qualifiers: Bronchitis organism: unspecified organism Qualified Code: J20.9 - Acute bronchitis, unspecified Referrals: Unknown (PCP/Family) Additional Instructions: Tessalon Perles as needed for cough. Make a follow-up with YOUr primary care doctor to review all results of today's visit. Monitor symptoms return with any concerns. Departure Forms: Customer Survey General Discharge Information Prescriptions: Current Visit Scripts Benzonatate 1 CAP PO TIDPRN PRN COUGH #30 CAP (Félix Melton) PA/GERIATRIC ASSISTANT Co-Sign Statement Statement: ED Attending supervision documentation- [x] I saw and evaluated the patient. I have also reviewed all the pertinent lab results and diagnostic results. I agree with the findings and the plan of care as documented in the PA's/GERIATRIC ASSISTANT's documentation. [] I have reviewed the ED Record and agree with the PA's/GERIATRIC ASSISTANT's documentation. [] Additions or exceptions (if any) to the PAs/GERIATRIC ASSISTANT's note and plan are summarized below: [] (Kevin Bonilla DO) Critical Care Note Critical Care Note Critical Care Time: non-applicable (Félix Melton)
[2018-01-18 13:04] LABS: ABSOLUTE BASOPHIL COUNT 0 /CUMM (0.0-0.2); ABSOLUTE EOSINOPHIL COUNT 0.1 /CUMM (0.0-0.7); ABSOLUTE GRANULOCYTE CT 5.2 /CUMM (1.4-6.5); ABSOLUTE LYMPH COUNT 1.5 /CUMM (1.2-3.4); ABSOLUTE MONOCYTE COUNT 0.6 /CUMM (0.10-0.60); BASOPHIL % 0.5 % (0.0-2.0); EOSINOPHIL % 1.6 % (0-5); GRANULOCYTE % 70.4 % (42.2-75.2); HEMATOCRIT 45.6 % (42-52); MEAN CORPUSCULAR HGB 29.6 PG (27.0-31.0); MEAN CORPUSCULAR VOLUME 89.7 FL (80.0-94.0); MEAN PLATELET VOLUME 6.9 FL (7.4-10.4); PLATELET COUNT 217 /CUMM (130-400); RBC DISTRIBUTION WIDTH 16.2 % (11.5-14.5); RED BLOOD CELL CT 5.08 /CUMM (4.70-6.10); WHITE BLOOD CELL COUNT 7.4 /CUMM (4.8-10.8)
--- NOTE | 2018-01-18 13:36 | RADIOLOGY REPORT ---
EXAMINATION: XR PORTABLE CHEST CLINICAL INFORMATION: Palpitations, weakness. COMPARISON: Chest done on 01/11/2018. TECHNIQUE: Portable frontal view of the chest was obtained. FINDINGS: Both lungs are symmetrically expanded, appear clear. Previously identified mild blunting of the left lateral CP angle is no longer present. The cardiomediastinal silhouette is within normal limits, given the technique. The visualized upper abdomen is unremarkable. IMPRESSION: No acute cardiopulmonary disease.
--- NOTE | 2018-01-18 15:43 | CT SCAN REPORT ---
EXAMINATION: CT ANGIOGRAM OF THE CHEST WITH AND WITHOUT CONTRAST (CT PULMONARY ANGIOGRAM FOR PE) CLINICAL INFORMATION: Shortness of breath on exertion. History of DVT. Evaluate for acute pulmonary embolus. COMPARISON: Chest radiograph same day. TECHNIQUE: Prior to contrast administration, noncontrast localization images were obtained. Subsequently, multidetector volumetric imaging was performed from the thoracic inlet to below the diaphragms following the administration of 95 mL Optiray 320 intravenous contrast. No contrast reaction reported. Sagittal, coronal, and MIP oblique sagittal reformatted images were obtained on the CT workstation, uploaded to PACS, and reviewed. Total exam dose-length product 541.92 mGy-cm. FINDINGS: The timing of the contrast injection provides adequate opacification of the pulmonary arterial vasculature. There is no central luminal filling defect to suggest the presence of an acute pulmonary embolism. There is bibasilar subsegmental atelectasis. No overt consolidative disease. The trachea and major airways are patent. Visualized portions of the thoracic outlet including the thyroid gland are normal. There is a well marginated cystic mediastinal mass adjacent to the thoracic esophagus best illustrated on axial image 18 of 68 series 4 that demonstrates simple fluid characteristics. This lesion measures 3.8 cm in maximal transaxial dimension. The heart size is normal. No pericardial effusion. The aortic arch apex and the origins of the major aortic branches are grossly unremarkable. A chest wall is grossly intact. No acute osseous finding. Bridging disc osteophyte complexes fuse multiple consecutive vertebral segments within the thoracic spine. Limited visualization of the abdominal contents reveals a few well marginated benign-appearing cystic lesions within the liver. IMPRESSION: No evidence of acute pulmonary embolism. There is bibasilar subsegmental atelectasis. No overt consolidative disease. 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 A few well marginated cystic lesions are also partially visualized within the liver. VTE: negative
[2018-01-18] MEDS ORDERED: BENZONATATE200 M1 PO (16:37)
[2018-01-18 17:19] VITALS: BP 123/78
== END 2018-01-18 17:35 ==
LOC: ERH 11:49
PROVIDERS: Physician Assistant Medical
DX: J20.9 Acute bronchitis, unspecified (principal); I48.91 Unspecified atrial fibrillation; Z79.01 Long term (current) use of anticoagulants; E03.9 Hypothyroidism, unspecified; M79.89 Other specified soft tissue disorders; R30.0 Dysuria; I82.509 Chronic embolism and thrombosis of unspecified deep veins of unspecified lower extremity
CPT/HCPCS: 71045; 81001; 87086; 93005; 93010

== ENCOUNTER 2018-01-25 08:00 | Emergency (ER) | payer OTHER, MEDICARE ==
[~2018-01-25] VITALS: Ht 175.3 cm; Wt 98.4 kg
[~2018-01-25 08:00] MED LIST changes: +BENZONATATE200 M1 PO
--- NOTE | 2018-01-25 08:14 | ED DYSPNEA/ASTHMA COMPLAINT ---
History of Present Illness General Chief Complaint: Dyspnea (COPD, CHF, Other) Stated Complaint: SOB THIS AM Source: patient, old records, EMS Exam Limitations: no limitations Vital Signs & Intake/Output Vital Signs & Intake/Output Vital Signs Date Time Temp Pulse Resp B/P B/P Pulse O2 O2 Flow FiO2 Mean Ox Delivery Rate 01/25 1020 98.8 85 20 107/73 96 Room Air 01/25 0842 94 01/25 0820 Room Air 01/25 0810 98.0 79 18 109/79 96 Room Air Allergies Coded Allergies: No Known Allergies (11/27/17) Reconcile Medications Albuterol Sulfate (Proair Hfa) 90 MCG HFA.AER.AD 2 PUF INH Q4-6 PRN PRN copd Apixaban (Eliquis) 5 MG TABLET 1 TAB PO BID a.fib (Reported) Benztropine Mesylate 1 MG TABLET 1 TAB PO BID TARDIVE DYSKINESIA (Reported) Carvedilol 6.25 MG TABLET 6.25 MG PO BID Rate control . Furosemide (Lasix) 20 MG TABLET 1 TAB PO DAILY CHF Levothyroxine Sodium (Synthroid) 200 MCG TABLET 1 TAB PO DAILY HYPOTHRYOIDISM (Reported) Methylprednisolone. 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 yes Onset: Abrupt Timing: recent history Severity: moderate Activities at Onset: none Prior Episodes/Possible Cause: occasional episodes Associated Symptoms: denies HPI: 77-year-old male history of A. fib on elliquis COPD not on home oxygen presents to the ER for evaluation after he developed sudden onset of shortness of breath at 1:00 this morning. On arrival he reports feeling improved he is been seen multiple times this month for similar complaints. He denies cough fever chills he reports he is feeling better at this time. He has history of chronic edema and is on Lasix. No shortness of breath with lying flat no fever or chills. (Chrissie AUGUST,Tree) Past History Travel History Traveled to [place] past 21 day No Medical History Any Pertinent Medical History? see below for history Neurological: NONE EENT: NONE Cardiovascular: AFIB, hypertension Respiratory: COPD Gastrointestinal: NONE Hepatic: NONE Renal: NONE Musculoskeletal: NONE Psychiatric: NONE Endocrine: NONE Blood Disorders: DVT, PE Cancer(s): NONE History of MRSA: No History of VRE: No History of CDIFF: No Surgical History Surgical History: ivc filter Psychosocial History Who do you live with Family Services at Home None What is your primary language Korean Family History Hx Contributory? No (Tree Queen) Review of Systems Review of Systems Constitutional: Reports: see HPI. Comments Review of systems: See HPI, All other systems negative. Constitutional, no chills no fever HEENT: no sore throat no congestion Cardiovascular: No chest pain Skin: no rashes, no change in skin Respiratory: dyspnea no cough no sputum GI: No nausea Muscle skeletal: No joint pain, no back pain Neurologic: , no headache Heme/endocrine: No bruising Immunology: No lymphadenopathy (Tree Queen) Physical Exam Physical Exam General Appearance: well developed/nourished, no apparent distress, alert, awake Respiratory: chest non-tender, no respiratory distress Comments: Well-developed well-nourished patient in no apparent distress. HEENT: Atraumatic, extraocular motion intact Neck: Supple, FROM Back: FROM Cardiovascular: Regular rate and rhythms no murmurs rub Respiratory: Chest nontender.There were no bony deformities, no asymmetry. No respiratory distress. Patient speaking in full complete sentences. Breath sounds clear to auscultation bilaterally: NO W/R/R Extremities: full range of motion Neuro: awake, alert, and oriented to person, place and time. There were no obvious focal neurologic abnormalities. Skin: Warm & dry;No appreciable rash on exposed skin Psych: Mood affect normal, normal memory normal judgment. Core Measures ACS in differential dx? Yes CVA/TIA Diagnosis No Sepsis Present: No Sepsis Focused Exam Completed? No (Tree Queen) Progress Differential Diagnosis: asthma, AMI, bronchitis, CHF, COPD, pericarditis, pulmonary embolism, unstable angina Plan of Care: Orders Procedure Date/time Status TROPONIN LEVEL 01/25 08 Complete COMPREHENSIVE METABOLIC PANEL 01/25 08 Complete CBC WITHOUT DIFFERENTIAL 01/25 08 Complete EKG 01/25 0801 Active Current Medications Sig/Connie Start time Last Medication Dose Stop Time Status Admin Oxycodone/ 1 TAB ONCE ONE 01/25 0915 CAN Acetaminophen 01/25 0916 (Percocet) Laboratory Tests 01/25/18 0840: Anion Gap 11, Estimated GFR > 60, BUN/Creatinine Ratio 23.6, Glucose 115 H, Calcium 9.0, Total Bilirubin 0.7, AST 24, ALT 26, Alkaline Phosphatase 68, Troponin I < 0.01, Total Protein 6.5, Albumin 3.6, Globulin 2.9, Albumin/ Globulin Ratio 1.2, CBC w Diff NO MAN DIFF REQ, RBC 4.88, MCV 88.6, MCH 29.8, MCHC 33.6, RDW 15.8 H, MPV 7.4, Gran % 71.4, Lymphocytes % 18.2 L, Monocytes % 8.2, Eosinophils % 1.9, Basophils % 0.3, Absolute Granulocytes 5.9, Absolute Lymphocytes 1.5, Absolute Monocytes 0.7 H, Absolute Eosinophils 0.2, Absolute Basophils 0 jayson resting in no acute distress at this time speaking full complete sentences nontoxic-appearing he's had 2 x-rays performed in the past 6 days that are unremarkable. Labs ordered she medicated with DuoNeb solid Medrol 125 IV xray 01/22: PATIENT: JAYSON GILLIAM PRESENT AGE: 77 PATIENT ACCOUNT NO: [id number] : 39 LOCATION: [facility] ORDERING PHYSICIAN: Ivan Vasquez MD SERVICE DATE: 01/22/18 EXAM TYPE: RAD - XRY-PORTABLE CHEST XRAY EXAMINATION: XR PORTABLE CHEST CLINICAL INFORMATION: Shortness of breath. COMPARISON: Chest x-ray January 19, 2018, January 18, 2018 TECHNIQUE: Portable frontal view of the chest was obtained. 2:29 AM FINDINGS: Heart size is enlarged. There are calcifications of aorta. There is no acute abnormality. There is no pulmonary vascular congestion. The lungs are clear. There is no pleural effusion or pneumothorax. IMPRESSION: No acute abnormality of the chest. DICTATED BY: Stiven Rosales MD DATE/TIME DICTATED:01/22/18257 CAMPUS POLICE OFFICER:VICENTE DATE/TIME TRANSCRIBED:01/22/18257 CONFIDENTIAL, DO NOT COPY WITHOUT APPROPRIATE AUTHORIZATION. <Electronically signed in Other Vendor System> SIGNED BY: Stiven Rosales MD 01/22/18 030Facundo Duke is feeling significant feeling improved after breathing treatment, resting in no acute distress ambulatory without hypoxia dyspnea. I discussed with him plan of care we'll send him home on albuterol inhaler and Medrol Dosepak return precautions were discussed at length. Initial ED EKG: afib at 100, no acute st seg changes, normal axis Prior EKG: unchanged (Tree Queen) Departure Departure Disposition: HOME OR SELF CARE Condition: Stable Clinical Impression Primary Impression: COPD (chronic obstructive pulmonary disease) Referrals: Patient Has No Primary Care Dr (PCP/Family) Additional Instructions: Continue medications as prescribed. Finished Medrol Dosepak as prescribed. Prescription for ProAIR to be used as directed. Departure Forms: Customer Survey General Discharge Information Prescriptions: Current Visit Scripts Methylprednisolone. (Medrol) 1 DP PO AD #1 DP 6 on day 1 then reduce by one tablet daily until gone Albuterol Sulfate (Proair Hfa) 2 PUF INH Q4-6 PRN PRN copd #1 INHAL (Tree Queen) PA/SILO OPERATOR Co-Sign Statement Statement: ED Attending supervision documentation- [X] I saw and evaluated the patient. I have also reviewed all the pertinent lab results and diagnostic results. I agree with the findings and the plan of care as documented in the PA's/SILO OPERATOR's documentation. [X] I have reviewed the ED Record and agree with the PA's/SILO OPERATOR's documentation. [] Additions or exceptions (if any) to the PAs/SILO OPERATOR's note and plan are summarized below: [] (Pedro BENTLEY,Ivan Combs) Critical Care Note Critical Care Note Critical Care Time: non-applicable (Tree Queen)
[2018-01-25 08:54] LABS: ABSOLUTE BASOPHIL COUNT 0 /CUMM (0.0-0.2); ABSOLUTE EOSINOPHIL COUNT 0.2 /CUMM (0.0-0.7); ABSOLUTE GRANULOCYTE CT 5.9 /CUMM (1.4-6.5); ABSOLUTE LYMPH COUNT 1.5 /CUMM (1.2-3.4); ABSOLUTE MONOCYTE COUNT 0.7 /CUMM (0.10-0.60); BASOPHIL % 0.3 % (0.0-2.0); EOSINOPHIL % 1.9 % (0-5); GRANULOCYTE % 71.4 % (42.2-75.2); HEMATOCRIT 43.3 % (42-52); MEAN CORPUSCULAR HGB 29.8 PG (27.0-31.0); MEAN CORPUSCULAR HGB CONC 33.6 G/DL (33.0-37.0); MEAN CORPUSCULAR VOLUME 88.6 FL (80.0-94.0); MEAN PLATELET VOLUME 7.4 FL (7.4-10.4); PLATELET COUNT 184 /CUMM (130-400); RBC DISTRIBUTION WIDTH 15.8 % (11.5-14.5); RED BLOOD CELL CT 4.88 /CUMM (4.70-6.10); WHITE BLOOD CELL COUNT 8.3 /CUMM (4.8-10.8)
[2018-01-25] MEDS ORDERED: MEDROL4 M2 PO (09:49)
[2018-01-25] MEDS ORDERED: PROAIR HFA8.5 GM INH (09:49)
[2018-01-25 10:20] VITALS: BP 107/73
== END 2018-01-25 10:30 ==
LOC: ERH 08:00
PROVIDERS: Physician Assistant Medical
DX: J44.9 Chronic obstructive pulmonary disease, unspecified (principal); I10 Essential (primary) hypertension; I48.91 Unspecified atrial fibrillation
CPT/HCPCS: 93005; 93010; 96374; J2930

== ENCOUNTER 2018-01-26 02:23 | Emergency (ER) | payer OTHER, MEDICARE ==
[~2018-01-26] VITALS: Ht 175.3 cm; Wt 102.5 kg
[~2018-01-26 02:23] MED LIST changes: +MEDROL4 M2 PO; +PROAIR HFA8.5 GM INH
--- NOTE | 2018-01-26 02:25 | ED GENERAL ADULT ---
See Addendum History of Present Illness General Chief Complaint: General Adult Stated Complaint: MEDICATION OD?? Source: patient, EMS Exam Limitations: no limitations Vital Signs & Intake/Output Vital Signs & Intake/Output Vital Signs Date Time Temp Pulse Resp B/P B/P Pulse O2 O2 Flow FiO2 Mean Ox Delivery Rate 01/26 0412 97.6 90 18 130/78 92 Room Air 01/27 228 97.6 108 18 122/70 95 Room Air Allergies Coded Allergies: No Known Allergies (11/27/17) Reconcile Medications Albuterol Sulfate (Proair Hfa) 90 MCG HFA.AER.AD 2 PUF INH Q4-6 PRN PRN copd Apixaban (Eliquis) 5 MG TABLET 1 TAB PO BID a.fib (Reported) Benztropine Mesylate 1 MG TABLET 1 TAB PO BID TARDIVE DYSKINESIA (Reported) Carvedilol 6.25 MG TABLET 6.25 MG PO BID Rate control . Furosemide (Lasix) 20 MG TABLET 1 TAB PO DAILY CHF Levothyroxine Sodium (Synthroid) 200 MCG TABLET 1 TAB PO DAILY HYPOTHRYOIDISM (Reported) Methylprednisolone. 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 yes Onset: Abrupt Duration: hour(s): Timing: single episode today Injury Environment: home Severity: mild Modifying Factors: Improves With: rest. Associated Symptoms: cough HPI: 77 yo gentleman presents with coughing back up his pills. He shares, "I took my pills... and then a few hours later, I felt like the pills were stuck in my throat... I then choked a bit... and then coughed up my pills... I felt some scratching in my throat, but now I feel fine.... The pills just came right up." He is otherwise well. Past History Travel History Traveled to [place] past 21 day No Medical History Any Pertinent Medical History? see below for history Neurological: NONE EENT: NONE Cardiovascular: AFIB, hypertension Respiratory: COPD Gastrointestinal: NONE Hepatic: NONE Renal: NONE Musculoskeletal: NONE Psychiatric: NONE Endocrine: NONE Blood Disorders: DVT, PE Cancer(s): NONE History of MRSA: No History of VRE: No History of CDIFF: No Surgical History Surgical History: ivc filter Psychosocial History Who do you live with Family Services at Home None What is your primary language Tristanian Tobacco Use: Never used Family History Hx Contributory? No Review of Systems Review of Systems Constitutional: Reports: no symptoms. EENTM: Reports: no symptoms. Respiratory: Reports: no symptoms. Cardiovascular: Reports: no symptoms. GI: Reports: no symptoms. Genitourinary: Reports: no symptoms. Musculoskeletal: Reports: no symptoms. Skin: Reports: no symptoms. Neurological/Psychological: Reports: no symptoms. Hematologic/Endocrine: Reports: no symptoms. Immunologic/Allergic: Reports: no symptoms. All Other Systems: Reviewed and Negative Physical Exam Physical Exam General Appearance: well developed/nourished, no apparent distress Head: atraumatic, normal appearance Eyes: Bilateral: normal appearance. Ears, Nose, Throat: normal pharynx, normal ENT inspection Neck: normal inspection, supple, full range of motion Respiratory: normal breath sounds, chest non-tender, no respiratory distress, quiet respiration, lungs clear Cardiovascular: irregularly irregular Gastrointestinal: normal bowel sounds, soft, non-tender Back: normal inspection, normal range of motion Extremities: normal inspection Neurologic/Psych: no motor/sensory deficits, awake, alert, oriented x 3 Skin: intact, normal color, warm/dry Comments: Review of Systems - except as otherwise noted in HPI Review of Systems Constitutional:no symptoms. EENTM:no symptoms. Respiratory:no symptoms. Cardiovascular:no symptoms. GI:no symptoms. Genitourinary:no symptoms. Musculoskeletal:no symptoms. Skin:no symptoms. Neurological/Psychological:no symptoms. Hematologic/Endocrine:no symptoms. Immunologic/Allergic:no symptoms. All Other Systems: Reviewed and Negative Physical Exam Physical Exam General Appearance: well developed/nourished, no apparent distress Head: atraumatic, normal appearance Eyes: Bilateral: normal appearance. Ears, Nose, Throat: normal pharynx, normal ENT inspection Neck: normal inspection, supple, full range of motion Respiratory: normal breath sounds, chest non-tender, no respiratory distress, quiet respiration, lungs clear Cardiovascular: regular rate/rhythm Gastrointestinal: normal bowel sounds, soft, non-tender, no organomegaly Back: normal inspection, normal range of motion Extremities: normal inspection, normal capillary refill, normal range of motion, no edema Neurologic/Psych: no motor/sensory deficits, awake, alert, oriented x 3 Skin: intact, normal color, warm/dry Core Measures ACS in differential dx? No CVA/TIA Diagnosis: No Sepsis Present: No Sepsis Focused Exam Completed? No Progress Differential Diagnoses I considered the following diagnoses in my evaluation of the patient: choking episode, reflux, vs other. Plan of Care: Orders Procedure Date/time Status TROPONIN LEVEL 01/26 225 Complete LIPASE 01/26 225 Complete HEPATIC FUNCTION PANEL 01/26 225 Complete CBC WITHOUT DIFFERENTIAL 01/26 225 Complete BASIC METABOLIC PANEL 01/26 225 Complete AMYLASE 01/26 225 Complete EKG 01/26 225 Active Laboratory Tests 01/26/18 0239: Anion Gap 16, Estimated GFR > 60, BUN/Creatinine Ratio 22.7, Glucose 212 H, Calcium 9.1, Total Bilirubin 0.7, Direct Bilirubin 0.2, AST 19, ALT 32, Alkaline Phosphatase 72, Troponin I < 0.01, Total Protein 6.7, Albumin 3.7, Amylase 59, Lipase 67, CBC w Diff MAN DIFF ORDERED, RBC 4.71, MCV 88.8, MCH 29.9, MCHC 33.6, RDW 16.2 H, MPV 8.0, Gran % 91.9 H, Lymphocytes % 4.8 L, Monocytes % 3.3, Eosinophils % 0, Basophils % 0, Absolute Granulocytes 12.8 H, Segmented Neutrophils 87 H, Band Neutrophils 6 H, Absolute Lymphocytes 0.7 L, Lymphocytes 6 L, Monocytes 1 L, Absolute Monocytes 0.5, Absolute Eosinophils 0 , Absolute Basophils 0, Platelet Estimate ADEQUATE, Polychromasia 1+, Poikilocytosis 1+, Ovalocytes 1+ Diagnostic Imaging: Viewed by Me: Radiology Read. Discussed w/RAD: Radiology Read. CXR Impression: PATIENT: JAYSON GILLIAM PRESENT AGE: 77 PATIENT ACCOUNT NO: [id number] : 39 LOCATION: [facility] ORDERING PHYSICIAN: García York MD SERVICE DATE: 01/26/18 EXAM TYPE: RAD - XRY- PORTABLE CHEST XRAY EXAMINATION: XR PORTABLE CHEST CLINICAL INFORMATION: Chest pain COMPARISON: Chest x-ray January 22, 2018 TECHNIQUE: Portable frontal view of the chest was obtained. 3:13 AM FINDINGS: Lungs are clear. No pulmonary vascular congestion. There is no pleural effusion. The heart size is normal. The cardiac and mediastinal contours are normal. There are calcifications of the thoracic aorta. There are multilevel degenerative changes of dorsal spine. There is degenerative spurring of the humeral head at the glenohumeral joint of both shoulders. IMPRESSION: No acute abnormality of the chest. DICTATED BY: Stiven Rosales MD DATE/TIME DICTATED:01/26/18342 RCIS:VICENTE DATE/TIME TRANSCRIBED:01/26/18342 CONFIDENTIAL, DO NOT COPY WITHOUT APPROPRIATE AUTHORIZATION. <Electronically signed in Other Vendor System> SIGNED BY: Stiven Rosales MD 01/26/18347 Initial ED EKG: AFIB Departure Departure Disposition: HOME OR SELF CARE Condition: Stable Clinical Impression Primary Impression: Choking episode Referrals: Patient Has No Primary Care Dr (PCP/Family) Departure Forms: Customer Survey General Discharge Information Comments pt stable in ED throughout his stay... labs benign. pt merits obesrvation in ED , [facility] home... PT safe for discharge. Critical Care Note Critical Care Note Critical Care Time: non-applicable
[2018-01-26 03:40] LABS: ABSOLUTE BASOPHIL COUNT 0 /CUMM (0.0-0.2); ABSOLUTE EOSINOPHIL COUNT 0 /CUMM (0.0-0.7); ABSOLUTE GRANULOCYTE CT 12.8 /CUMM (1.4-6.5); ABSOLUTE LYMPH COUNT 0.7 /CUMM (1.2-3.4); ABSOLUTE MONOCYTE COUNT 0.5 /CUMM (0.10-0.60); BASOPHIL % 0 % (0.0-2.0); EOSINOPHIL % 0 % (0-5); GRANULOCYTE % 91.9 % (42.2-75.2); HEMATOCRIT 41.8 % (42-52); MEAN CORPUSCULAR HGB 29.9 PG (27.0-31.0); MEAN CORPUSCULAR HGB CONC 33.6 G/DL (33.0-37.0); MEAN CORPUSCULAR VOLUME 88.8 FL (80.0-94.0); PLATELET COUNT 188 /CUMM (130-400); RBC DISTRIBUTION WIDTH 16.2 % (11.5-14.5); RED BLOOD CELL CT 4.71 /CUMM (4.70-6.10)
[2018-01-26 03:42] LABS: WHITE BLOOD CELL COUNT 13.9 /CUMM (4.8-10.8)
--- NOTE | 2018-01-26 03:48 | RADIOLOGY REPORT ---
EXAMINATION: XR PORTABLE CHEST CLINICAL INFORMATION: Chest pain COMPARISON: Chest x-ray January 22, 2018 TECHNIQUE: Portable frontal view of the chest was obtained. 3:13 AM FINDINGS: Lungs are clear. No pulmonary vascular congestion. There is no pleural effusion. The heart size is normal. The cardiac and mediastinal contours are normal. There are calcifications of the thoracic aorta. There are multilevel degenerative changes of dorsal spine. There is degenerative spurring of the humeral head at the glenohumeral joint of both shoulders. IMPRESSION: No acute abnormality of the chest.
[2018-01-26 04:12] VITALS: BP 130/78
== END 2018-01-26 05:15 ==
LOC: ERH 02:23
PROVIDERS: Pediatrics
DX: T18.108A Unspecified foreign body in esophagus causing other injury, initial encounter (principal)
CPT/HCPCS: 71045; 93005; 93010

== ENCOUNTER 2018-02-12 15:48 | Emergency (ER) | payer OTHER, MEDICARE ==
[~2018-02-12] VITALS: Ht 175.3 cm; Wt 100.7 kg
--- NOTE | 2018-02-12 16:56 | ED DYSPNEA/ASTHMA COMPLAINT ---
History of Present Illness General Chief Complaint: Dyspnea (COPD, CHF, Other) Stated Complaint: BIBA DIFF BREATHING X 5 DAYS Source: patient Exam Limitations: no limitations Vital Signs & Intake/Output Vital Signs & Intake/Output Vital Signs Date Time Temp Pulse Resp B/P B/P Pulse O2 O2 Flow FiO2 Mean Ox Delivery Rate 02/12 1848 98.0 90 20 126/90 95 Room Air 02/12 1605 97.8 130 24 116/83 94 Room Air Allergies Coded Allergies: No Known Allergies (11/27/17) Reconcile Medications Albuterol Sulfate (Proair Hfa) 90 MCG HFA.AER.AD 2 PUF INH Q4-6 PRN PRN copd Apixaban (Eliquis) 5 MG TABLET 1 TAB PO BID a.fib (Reported) Benztropine Mesylate 1 MG TABLET 1 TAB PO BID TARDIVE DYSKINESIA (Reported) Carvedilol 6.25 MG TABLET 6.25 MG PO BID Rate control . Furosemide (Lasix) 20 MG TABLET 1 TAB PO DAILY CHF Levothyroxine Sodium (Synthroid) 200 MCG TABLET 1 TAB PO DAILY HYPOTHRYOIDISM (Reported) Methylprednisolone. 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 PT ARRIVES IN NO DISTRESS. O2 SAT ON RA IS 93-94%. LS CTA. IN AFIB 110s-150s. HAS HX OF IT. NO CP OR PALPITATIONS. Triage Nurses Notes Reviewed? yes Onset: Gradual Duration: day(s):, better, continues in ED, intermittent, waxing and waning Timing: multiple episodes today Severity: moderate Activities at Onset: rest HPI: Patient presents for evaluation of shortness of breath and increased heart rate over the past 5 days. Patient states that he presents to the emergency department because of increased heart rate noted by a visiting nurse at about 2: 30 to 3:00 this afternoon. Patient denies any associated chest pain, fever, cold symptoms, leg swelling or orthopnea. He is without complaints currently. He admits to a past medical history of atrial fibrillation (patient takes Eliquis) and COPD. Past History Travel History Traveled to [place] past 21 day No Medical History Any Pertinent Medical History? see below for history Neurological: NONE EENT: NONE Cardiovascular: AFIB, hypertension Respiratory: COPD Gastrointestinal: NONE Hepatic: NONE Renal: NONE Musculoskeletal: NONE Psychiatric: NONE Endocrine: NONE Blood Disorders: DVT, PE Cancer(s): NONE History of MRSA: No History of VRE: No History of CDIFF: No Surgical History Surgical History: ivc filter Psychosocial History Who do you live with Family Services at Home None What is your primary language Croatian Tobacco Use: Never used ETOH Use: denies use Family History Hx Contributory? No Review of Systems Review of Systems Constitutional: Reports: no symptoms. EENTM: Reports: no symptoms. Respiratory: Reports: see HPI. Cardiovascular: Reports: no symptoms. GI: Reports: no symptoms. Genitourinary: Reports: no symptoms. Musculoskeletal: Reports: no symptoms. Skin: Reports: no symptoms. Neurological/Psychological: Reports: no symptoms. Hematologic/Endocrine: Reports: no symptoms. Immunologic/Allergic: Reports: no symptoms. All Other Systems: Reviewed and Negative Physical Exam Physical Exam Respiratory: see below Comments: Gen.: Well-nourished, well-developed, no acute respiratory distress. Head: Normocephalic, atraumatic. Eyes: Normal inspection bilaterally Ears: Normal inspection bilaterally Nose: Normal inspection Throat/mouth : Moist mucosa Neck: Supple, full range of motion, no goiter, no JVD Heart: irregular rate and rhythm, no murmurs rubs or gallops Lungs: Clear to auscultation bilaterally with normal air entry Chest: Nontender Back: Normal range of motion Abdomen: Soft, nontender, nondistended, normal bowel sounds Extremities: Normal range of motion grossly, equal radial pulses, no cyanosis, mild pitting pretibial edema bilaterally Neurologic: Cranial nerves grossly intact, speech is clear Skin: warm and dry Psychiatric: Calm, cooperative, no apparent delusions or hallucinations Core Measures ACS in differential dx? No CVA/TIA Diagnosis No Sepsis Present: No Sepsis Focused Exam Completed? No Progress Differential Diagnosis: asthma, AMI, bronchitis, CHF, COPD, pneumonia Plan of Care: Orders Procedure Date/time Status Heart Healthy Diet 02/13 B Active Vital Signs 02/12 2229 Active TROPONIN LEVEL 02/12 2100 Complete EKG 02/12 2100 Active Vital Signs 02/12 1840 Active TOTAL TRIODOTHYROXINE 02/12 1713 Complete FREE T4 02/12 1713 Complete TSH REFLEX 02/12 1655 Complete TROPONIN LEVEL 02/12 1655 Complete PROTHROMBIN TIME 02/12 1655 Complete MAGNESIUM 02/12 1655 Complete CBC WITHOUT DIFFERENTIAL 02/12 165 Complete BASIC METABOLIC PANEL 02/12 165 Complete EKG 02/12 1549 Active Laboratory Tests 02/12/18 2119: Troponin I < 0.01 02/12/18 171: Anion Gap 11, Estimated GFR > 60, BUN/Creatinine Ratio 18.0, Glucose 96, Calcium 9.0, Magnesium 2.1, Troponin I < 0.01, Free T4 0.99, Total T3 1.34, TSH &T3 & Free T4 Intrp 5.490 H, PT 18.2 H, INR 1.66 H, CBC w Diff NO MAN DIFF REQ, RBC 4.87, MCV 88.9, MCH 30.1, MCHC 33.9, RDW 16.4 H, MPV 7.6, Gran % 72.6, Lymphocytes % 15.7 L, Monocytes % 8.4, Eosinophils % 1.8, Basophils % 1.5, Absolute Granulocytes 5.7, Absolute Lymphocytes 1.2, Absolute Monocytes 0.7 H, Absolute Eosinophils 0.1, Absolute Basophils 0.1 Diagnostic Imaging: Discussed w/RAD: Radiology Read. CXR Impression: PATIENT: SRIKANTH GILLIAM PRESENT AGE: 77 PATIENT ACCOUNT NO: [id number] : 39 LOCATION: [facility] ORDERING PHYSICIAN: Kevin Urias MD SERVICE DATE: 02/12/18 EXAM TYPE: RAD - XRY-PORTABLE CHEST XRAY EXAMINATION: XR PORTABLE CHEST CLINICAL INFORMATION: Dyspnea. History of COPD and A. fib. COMPARISON: Chest radiograph 02/07/2018. TECHNIQUE: Portable frontal view of the chest was obtained. FINDINGS: Allowing for low lung volumes the lungs are clear without consolidation, edema, effusion, or pneumothorax. Top normal heart size with calcified aorta. The osseous structures are grossly intact. IMPRESSION: No active disease in the chest. DICTATED BY: Sherrie Hagen MD DATE/TIME DICTATED:02/12/181803 MAILING MACHINE ASSISTANT:VICENTE DATE/TIME TRANSCRIBED:02/12/181803 CONFIDENTIAL, DO NOT COPY WITHOUT APPROPRIATE AUTHORIZATION. <Electronically signed in Other Vendor System> SIGNED BY: Sherrie Hagen MD 02/12/181808 Initial ED EKG: rate (136), AFIB Prior EKG: unchanged Comments: 02/12/2018 19:35 PM I updated Srikanth on his test results. He is comfortable currently and offers no specific complaints. 02/12/2018 11:02:12 PM repeat EKG and troponin are unremarkable. The patient has been resting comfortably. Departure Departure Disposition: HOME OR SELF CARE Condition: Stable Clinical Impression Primary Impression: COPD exacerbation Secondary Impressions: Atrial fibrillation Qualifiers: Atrial fibrillation type: chronic Qualified Code: I48.2 - Chronic atrial fibrillation Referrals: Patient Has No Primary Care Dr (PCP/Family) Additional Instructions: Rest, no exertion. Continue your current medications. Follow-up with your primary care physician tomorrow for reevaluation. Return if any concerns or sudden worsening. Please note that there might be incidental findings in your evaluation that are unrelated to the current emergency department visit. Please notify your primary care doctor about this emergency department visit in order to obtain and review all of the testing performed so that these incidental findings can be monitored as needed. If you had an x-ray performed, please understand that some fractures or other findings may not be seen on the initial set of x-rays. If your symptoms persist you might need a repeat set of x-rays to check for such a fracture. If you had a laceration evaluated, please understand that foreign bodies such as glass or wood may not be visible to the naked eye or on plain x-rays. If the wound becomes red, swollen, increasingly more painful or if there is any drainage from the wound, please have it reevaluated by a physician for the possibility of a retained foreign body. If you're unable to follow up as outlined in the discharge instructions please return to the emergency department. Thank you for choosing the [facility] Emergency Department for your care. It was a pleasure to serve you today. Kevin Urias M.D. [facility] Departure Forms: Customer Survey General Discharge Information Critical Care Note Critical Care Note Critical Care Time: non-applicable
[2018-02-12 17:25] LABS: ABSOLUTE BASOPHIL COUNT 0.1 /CUMM (0.0-0.2); ABSOLUTE EOSINOPHIL COUNT 0.1 /CUMM (0.0-0.7); ABSOLUTE GRANULOCYTE CT 5.7 /CUMM (1.4-6.5); ABSOLUTE LYMPH COUNT 1.2 /CUMM (1.2-3.4); ABSOLUTE MONOCYTE COUNT 0.7 /CUMM (0.10-0.60); BASOPHIL % 1.5 % (0.0-2.0); EOSINOPHIL % 1.8 % (0-5); GRANULOCYTE % 72.6 % (42.2-75.2); HEMATOCRIT 43.3 % (42-52); MEAN CORPUSCULAR HGB 30.1 PG (27.0-31.0); MEAN CORPUSCULAR HGB CONC 33.9 G/DL (33.0-37.0); MEAN CORPUSCULAR VOLUME 88.9 FL (80.0-94.0); MEAN PLATELET VOLUME 7.6 FL (7.4-10.4); PLATELET COUNT 173 /CUMM (130-400); RBC DISTRIBUTION WIDTH 16.4 % (11.5-14.5); RED BLOOD CELL CT 4.87 /CUMM (4.70-6.10); WHITE BLOOD CELL COUNT 7.9 /CUMM (4.8-10.8)
[2018-02-12 17:30] LABS: PT 18.2 SEC (9.4-12.5)
--- NOTE | 2018-02-12 18:09 | RADIOLOGY REPORT ---
EXAMINATION: XR PORTABLE CHEST CLINICAL INFORMATION: Dyspnea. History of COPD and A. fib. COMPARISON: Chest radiograph 02/07/2018. TECHNIQUE: Portable frontal view of the chest was obtained. FINDINGS: Allowing for low lung volumes the lungs are clear without consolidation, edema, effusion, or pneumothorax. Top normal heart size with calcified aorta. The osseous structures are grossly intact. IMPRESSION: No active disease in the chest.
[2018-02-12 18:48] VITALS: BP 126/90
== END 2018-02-12 23:42 ==
LOC: ERH 15:48
PROVIDERS: Emergency Medicine
DX: J44.1 Chronic obstructive pulmonary disease with (acute) exacerbation (principal); I48.91 Unspecified atrial fibrillation; R06.02 Shortness of breath; I10 Essential (primary) hypertension
CPT/HCPCS: 71045; 93005; 93010